=== PATIENT | female | born 1965 ===

== ENCOUNTER → 2019-02-08 | Outpatient (CLI) | payer MEDICARE, OTHER ==
[~2019-02-08] MED LIST: AMIT50 PO; BISO5 PO; CIPRO500 MG PO; CLON1 PO; CYCL10 PO; ERGO50000 PO; IBUP800; LANS30EC PO; NICO21TP TOP; OXYB5 PO; PIRO20 PO; PRAM.125 PO; PRAV20 PO; PROM12.5S; Percocet 5-3251 EACH PO; Prozac20 MG; Pyridium200 MG PO; SULTRIDS PO; Valium5 MG PO; Ventolin Soln3 ML INH
[2019-02-08 13:48] LABS: Source, Urine Clean Catch
[2019-02-08 17:35] LABS: Appearance, Urine Turbid (Clear); Bilirubin, Urine Neg (Neg); Blood, Urine 5+ (Neg); Color, Urine Yellow (P-Yellow); Glucose Qualitative, Urine Neg (Neg); Ketones, Urine Neg (Neg); Leukocyte Esterase, Urine 3+ (Neg); Nitrite, Urine Pos (Neg); Protein, Urine 3+ (Neg); Specific Gravity, Urine 1.025 (1.003-1.022); Urobilinogen, Urine NORM (Normal)
[2019-02-08 17:53] LABS: Red Blood Cells, Urine 50-100 /hpf (0-2); White Blood Cells, Urine TNTC /hpf (0-5)
[2019-02-08 17:54] LABS: Bacteria Many /hpf; Squamous Epithelial Cells Few /hpf (Few)
== END | disposition home or self-care (01) ==
LOC: LAB SHORT 13:46 → LAB 13:46
PROVIDERS: Nurse Practitioner Family
DX: R32 Unspecified urinary incontinence (principal)
CPT/HCPCS: 81001

== ENCOUNTER 2020-06-25 14:19 | Inpatient (IN) | payer MEDICARE, OTHER ==
[~2020-06-25] VITALS: Ht 157.5 cm; Wt 63.3 kg
[~2020-06-25 14:19] MED LIST changes: +Roxicodone5 MG PO
[2020-06-25 15:07] LABS: BASOPHILS ABSOLUTE AUTO 0.06 K/mm3 (0.00-0.23); BASOPHILS PERCENT AUTO 0 % (0-2); EOSINOPHILS PERCENT AUTO 0 % (0-6); Hematocrit 41.8 % (33.0-51.0); Hemoglobin 13.5 g/dL (11.5-16.0); IMMATURE GRAN ABSOLUTE AUTO 0.08 K/mm3 (0.00-0.10); IMMATURE GRAN PERCENT AUTO 0 % (0-1); LYMPHOCYTES PERCENT AUTO 6 % (21-46); MONOCYTES ABSOLUTE AUTO 1.05 K/mm3 (0.16-1.47); MONOCYTES PERCENT AUTO 6 % (4-13); Mean Corpuscular HGB 33.7 pg (26.0-34.0); Mean Corpuscular HGB Conc 32.3 g/dL (31.5-36.5); Mean Corpuscular Volume 104 fL (80-100); Mean Platelet Volume 9.6 fL (9.1-12.4); NEUTROPHILS ABSOLUTE AUTO 15.59 K/mm3 (1.96-9.15); NEUTROPHILS PERCENT AUTO 88 % (41-73); Platelet Count 556 K/mm3 (150-400); RDW Coefficient Variation 13.1 % (11.7-14.2); RDW Standard Deviation 50.5 fL (35.1-46.3); Red Blood Cell Count 4.01 M/mm3 (3.80-5.20); White Blood Cell Count 17.78 K/mm3 (4.00-11.30)
[2020-06-25 15:55] LABS: Troponin I <0.015 ng/mL (0.000-0.040)
[2020-06-25 16:37] LABS: Alanine Aminotransfer (ALT/SGP 16 U/L (12-78); Albumin, Blood 3.4 g/dL (3.4-5.0); Alk Phos 146 U/L (50-136); Anion Gap 8 mmol/L (6-16); Aspartate Aminotrans (AST/SGOT 17 U/L (12-37); Bilirubin, Total 0.3 mg/dL (0.1-1.0); Blood Urea Nitrogen 11 mg/dL (8-24); Bun/Creatinine Ratio 18.2 (12.0-20.0); CO2, Blood 18 mmol/L (21-32); Calcium, Blood 8.9 mg/dL (8.5-10.1); Chloride, Blood 112 mmol/L (98-108); Creatinine, Blood 0.61 mg/dL (0.40-1.00); Globulin, Blood 3.5 g/dL (2.2-4.0); Glomerular Filtration Rate >60 (60-); Glucose, Blood 131 mg/dL (70-99); Potassium, Blood 3.8 mmol/L (3.5-5.5); Sodium, Blood 138 mmol/L (136-145); Total Protein, Blood 6.9 g/dL (6.4-8.2)
[2020-06-25] MEDS ORDERED: AMOCLA875 PO (17:07)
[2020-06-25] MEDS ORDERED: ALBU90OI6 INH (17:09)
[2020-06-25] MEDS ORDERED: Amitriptyline150 MG PO (18:15)
[2020-06-25] MEDS ORDERED: PANTOPRAZOLE SO40 M2 PO (18:16)
[2020-06-25] MEDS ORDERED: PRAMIPEXOLE0.125 M1 PO (18:16)
[2020-06-25] MEDS ORDERED: PROZAC40 MG PO (18:16)
[2020-06-25] MEDS ORDERED: Bisoprolol Fumar5 MG PO (18:17)
[2020-06-25] MEDS ORDERED: Pravastatin Sod80 MG PO (18:17)
[2020-06-25] MEDS ORDERED: Vitamin D2000 UNIT PO (18:18)
[2020-06-25 23:49] LABS: Adenovirus Not Detected (NOT DETECT); Bordetella pertussis Not Detected (NOT DETECT); Chlamydophila pneumoniae Not Detected (NOT DETECT); Coronavirus 229E Not Detected (NOT DETECT); Coronavirus HKU1 Not Detected (NOT DETECT); Coronavirus NL63 Not Detected (NOT DETECT); Coronavirus OC43 Not Detected (NOT DETECT); Human Metapneumovirus Not Detected (NOT DETECT); Human Rhinovirus/Enterovirus Not Detected (NOT DETECT); Influenza A/2009-H1 Not Detected (NOT DETECT); Influenza A/H1 Not Detected (NOT DETECT); Influenza A/H3 Not Detected (NOT DETECT); Influenza B Not Detected (NOT DETECT); Mycoplasma pneumoniae Not Detected (NOT DETECT); Parainfluenza Virus 1 Not Detected (NOT DETECT); Parainfluenza Virus 2 Not Detected (NOT DETECT); Parainfluenza Virus 3 Not Detected (NOT DETECT); Parainfluenza Virus 4 Not Detected (NOT DETECT); Respiratory Syncytial Virus Not Detected (NOT DETECT); SARS-Cov-2 (COVID-19), BioFire Not Detected (NOT DETECT)
[2020-06-26 01:27] LABS: Source, Urine Catheter
[2020-06-26 01:29] LABS: Bilirubin, Urine Neg (Neg); Blood, Urine 2+ (Neg); Glucose Qualitative, Urine Neg (Neg); Ketones, Urine 1+ (Neg); Leukocyte Esterase, Urine 1+ (Neg); Nitrite, Urine Neg (Neg); Protein, Urine 2+ (Neg); Specific Gravity, Urine 1.015 (1.003-1.022); Urobilinogen, Urine NORM (Normal)
[2020-06-26 01:35] LABS: Appearance, Urine Hazy (Clear); Color, Urine Yellow (P-Yellow)
[2020-06-26 01:39] LABS: Bacteria Many /hpf; Red Blood Cells, Urine 0-2 /hpf (0-2); Squamous Epithelial Cells Few /hpf (Few); White Blood Cells, Urine TNTC /hpf (0-5)
[2020-06-26 05:16] LABS: BASOPHILS ABSOLUTE AUTO 0.03 K/mm3 (0.00-0.23); BASOPHILS PERCENT AUTO 0 % (0-2); EOSINOPHILS ABSOLUTE AUTO 0.02 K/mm3 (0.00-0.68); EOSINOPHILS PERCENT AUTO 0 % (0-6); Hematocrit 39.1 % (33.0-51.0); Hemoglobin 12.5 g/dL (11.5-16.0); IMMATURE GRAN PERCENT AUTO 1 % (0-1); LYMPHOCYTES ABSOLUTE AUTO 0.47 K/mm3 (0.84-5.20); LYMPHOCYTES PERCENT AUTO 2 % (21-46); MONOCYTES ABSOLUTE AUTO 0.58 K/mm3 (0.16-1.47); MONOCYTES PERCENT AUTO 3 % (4-13); Mean Corpuscular HGB 33.5 pg (26.0-34.0); Mean Corpuscular Volume 105 fL (80-100); NEUTROPHILS ABSOLUTE AUTO 19.64 K/mm3 (1.96-9.15); NEUTROPHILS PERCENT AUTO 94 % (41-73); Platelet Count 423 K/mm3 (150-400); RDW Coefficient Variation 13.3 % (11.7-14.2); RDW Standard Deviation 51.1 fL (35.1-46.3); Red Blood Cell Count 3.73 M/mm3 (3.80-5.20); White Blood Cell Count 20.84 K/mm3 (4.00-11.30)
--- NOTE | 2020-06-26 05:45 | NUR ---
SUMMARY PT ARRIVED TO FLOOR ANXIOUS AND REPORTED BEING PAINFUL. PT WAS FOUND TO HAVE A ELEVATED CIWA. PT STATES PAIN IS 10/10 IN HER CX, BACK AND FLANKS. PT TX PER EMAR. PT HAD SHORT RELIEF NOTED. DR DELGADO ORDERED INCREASE IN IN DOSE. PT RESPONDED WELL. PT ALSO MEDICATED ORDERED FOR CIWA. LATIC ACID RESULTS WERE ALSO PASSED TO PROVIDER. PROVIDER ORDERED TO CONTINUE TO MONITOR. PT LERMA PLACED AND UA SENT. PT HAS BEEN SLEEPING WELL AND BREATHING EASY. PT NOT AGITATED OR ANXIOUS THIS AM. CALL LIGHT IN REACH. WCTM
[2020-06-26 06:03] LABS: Anion Gap 13 mmol/L (6-16); Blood Urea Nitrogen 13 mg/dL (8-24); Bun/Creatinine Ratio 21.1 (12.0-20.0); CO2, Blood 16 mmol/L (21-32); Calcium, Blood 8.5 mg/dL (8.5-10.1); Chloride, Blood 113 mmol/L (98-108); Creatinine, Blood 0.62 mg/dL (0.40-1.00); Glomerular Filtration Rate >60 (60-); Glucose, Blood 140 mg/dL (70-99); Potassium, Blood 3.9 mmol/L (3.5-5.5); Sodium, Blood 142 mmol/L (136-145)
--- NOTE | 2020-06-26 17:24 | NUR ---
SHIFT SUMMARY DROWSY PT, AGITATED AND ANXIOUS UPON AWAKENING. DISORIENTED, INTITALLY, UPON AWAKENING, AT TIMES. NOTIFIED MD OF POSITIVE BLOOD CULTURES, GRAM + COCCI IN CLUSTERS, VANCO STARTED. NO COUGH NOTED, UNABLE TO COLLECT SPUTUM. LERMA DRAINING YELLOW, HAZY URINE WITH SEDIMENT. UPDATED FATHER WILLIAM PAYTON TWICE TODAY, BY PHONE.
--- NOTE | 2020-06-27 04:47 | NUR ---
VISOR INSTALLER SUMMARY PT BEGAN SHIFT W PROVIDER AT BEDSIDE EXPLAINING TX PLAN AND POSSIBLE SURGERY FOR CHOLECYSTECTOMY. PT WAS CHANGED TO A CLEAR LIQUID DIET AND ALL FOOD AND SODA WAS REMOVED FROM THE ROOM. PT C/O SEVERE ABD PAIN AND WAS MEDICATED W 50 MCG OF FENTANYL WHICH SHE REPORTD BROUGHT HER MUCH RELIEF. PT SLEPT MOST OF THE NIGHT AND IS CURRENTLY RESTING W CALL LIGHT IN REACH.
[2020-06-27 05:24] LABS: BASOPHILS ABSOLUTE AUTO 0.03 K/mm3 (0.00-0.23); BASOPHILS PERCENT AUTO 0 % (0-2); EOSINOPHILS ABSOLUTE AUTO 0.01 K/mm3 (0.00-0.68); EOSINOPHILS PERCENT AUTO 0 % (0-6); Hematocrit 40.5 % (33.0-51.0); Hemoglobin 13.1 g/dL (11.5-16.0); IMMATURE GRAN ABSOLUTE AUTO 0.13 K/mm3 (0.00-0.10); IMMATURE GRAN PERCENT AUTO 1 % (0-1); LYMPHOCYTES ABSOLUTE AUTO 1.01 K/mm3 (0.84-5.20); LYMPHOCYTES PERCENT AUTO 5 % (21-46); MONOCYTES ABSOLUTE AUTO 0.93 K/mm3 (0.16-1.47); MONOCYTES PERCENT AUTO 5 % (4-13); Mean Corpuscular HGB 33.9 pg (26.0-34.0); Mean Corpuscular HGB Conc 32.3 g/dL (31.5-36.5); Mean Corpuscular Volume 105 fL (80-100); Mean Platelet Volume 9.6 fL (9.1-12.4); NEUTROPHILS ABSOLUTE AUTO 18.76 K/mm3 (1.96-9.15); NEUTROPHILS PERCENT AUTO 90 % (41-73); Platelet Count 438 K/mm3 (150-400); RDW Coefficient Variation 13.5 % (11.7-14.2); RDW Standard Deviation 51.9 fL (35.1-46.3); Red Blood Cell Count 3.86 M/mm3 (3.80-5.20); White Blood Cell Count 20.87 K/mm3 (4.00-11.30)
[2020-06-27 06:08] LABS: Alanine Aminotransfer (ALT/SGP 13 U/L (12-78); Albumin, Blood 2.7 g/dL (3.4-5.0); Albumin/Globulin Ratio 0.7 (0.8-1.8); Alk Phos 129 U/L (50-136); Anion Gap 11 mmol/L (6-16); Aspartate Aminotrans (AST/SGOT 27 U/L (12-37); Bilirubin, Total 0.5 mg/dL (0.1-1.0); Blood Urea Nitrogen 14 mg/dL (8-24); CO2, Blood 16 mmol/L (21-32); Calcium, Blood 8.5 mg/dL (8.5-10.1); Chloride, Blood 112 mmol/L (98-108); Creatinine, Blood 0.67 mg/dL (0.40-1.00); Globulin, Blood 3.8 g/dL (2.2-4.0); Glomerular Filtration Rate >60 (60-); Glucose, Blood 106 mg/dL (70-99); Potassium, Blood 3.9 mmol/L (3.5-5.5); Sodium, Blood 139 mmol/L (136-145); Total Protein, Blood 6.5 g/dL (6.4-8.2)
--- NOTE | 2020-06-27 17:20 | NUR ---
SHIFT SUMMARY PATIENT MOANS AND IS RESTLESS, COMPLAINING OF PAIN. IMPULSIVE. DANGLES AND TURNS SELF FREQUENTLY. RAINBOW TROUT FARM MANAGER INITIATED. PATIENT REMINDED UPON AWAKENING WITH ANXIETY AND PAIN TO PUSH BUTTON, NEEDS REINFORCEMENT. CAREGIVER AND FATHER UPDATED ON PATIENT STATUS. OFFERED PO FLUIDS EACH TIME PT AWAKENS. CONSISTENTLY DROWSY BUT ORIENTED X4.
--- NOTE | 2020-06-27 20:19 | NUR ---
PATIENT IS UNABLE TO FOLLOW COMMANDS. SHE IS CONSTANTLY SWINGING LEGS OVER THE SIDE OF BED AND ROCKING BACK AND FORTH. UNABLE TO VERBALIZE NEEDS, CURRENTLTY WITH BOBBIN WINDER TENDER FENTANYL AND REFUSING TO WEAR 02. CIWA SCALE RESTARTED. REQUESTED PATIENT BE MOVED TO SPECIAL CARE UNIT, AWAITING CLEAN ROOM
--- NOTE | 2020-06-27 22:14 | NUR ---
Patient transferred to room 345. Report given to Johanna Bridges RN.
--- NOTE | 2020-06-28 04:27 | NUR ---
SHIFT SUMMARY: PT IS RESPONSIVE WITH SLURRED SPEECH, SOME ORIENTATION WITH SOME CONFUSION. PT IS THRASHING AROUND OFTEN, APPEARS TO BE ALCOHOL WITHDRAWAL, MEDICATING WITH IV ATIVAN PER EMAR, PT MUCH MORE RESTFUL AFTER MEDICATION. MORNING VITAL SIGNS SHOW O2 SATS @ 80%, PUT HER ON 5 L VIA NC, SATS RETURNED TO LOW 90'S. LERMA PATENT AND DRAINING YELLOW URINE. PT SLEPT INTERMITTENTLY THROUGHOUT THE NIGHT. BED IN LOW POSITION, CALL LIGHT WITHIN REACH. WILL REPORT TO DAY NURSE.
[2020-06-28 11:15] LABS: BASOPHILS ABSOLUTE AUTO 0.04 K/mm3 (0.00-0.23); BASOPHILS PERCENT AUTO 0 % (0-2); EOSINOPHILS ABSOLUTE AUTO 0.03 K/mm3 (0.00-0.68); EOSINOPHILS PERCENT AUTO 0 % (0-6); Hematocrit 34.1 % (33.0-51.0); Hemoglobin 11.4 g/dL (11.5-16.0); IMMATURE GRAN ABSOLUTE AUTO 0.06 K/mm3 (0.00-0.10); IMMATURE GRAN PERCENT AUTO 0 % (0-1); LYMPHOCYTES ABSOLUTE AUTO 0.79 K/mm3 (0.84-5.20); LYMPHOCYTES PERCENT AUTO 5 % (21-46); MONOCYTES ABSOLUTE AUTO 0.84 K/mm3 (0.16-1.47); MONOCYTES PERCENT AUTO 5 % (4-13); Mean Corpuscular HGB 34.3 pg (26.0-34.0); Mean Corpuscular HGB Conc 33.4 g/dL (31.5-36.5); Mean Corpuscular Volume 103 fL (80-100); Mean Platelet Volume 9.8 fL (9.1-12.4); NEUTROPHILS ABSOLUTE AUTO 14.77 K/mm3 (1.96-9.15); NEUTROPHILS PERCENT AUTO 89 % (41-73); Platelet Count 307 K/mm3 (150-400); RDW Coefficient Variation 13.4 % (11.7-14.2); RDW Standard Deviation 50.6 fL (35.1-46.3); Red Blood Cell Count 3.32 M/mm3 (3.80-5.20); White Blood Cell Count 16.53 K/mm3 (4.00-11.30)
[2020-06-28 12:02] LABS: Alanine Aminotransfer (ALT/SGP 24 U/L (12-78); Albumin, Blood 2.1 g/dL (3.4-5.0); Albumin/Globulin Ratio 0.6 (0.8-1.8); Alk Phos 121 U/L (50-136); Anion Gap 9 mmol/L (6-16); Aspartate Aminotrans (AST/SGOT 60 U/L (12-37); Bilirubin, Total 0.9 mg/dL (0.1-1.0); Blood Urea Nitrogen 15 mg/dL (8-24); Bun/Creatinine Ratio 22.9 (12.0-20.0); CO2, Blood 20 mmol/L (21-32); Calcium, Blood 8.4 mg/dL (8.5-10.1); Chloride, Blood 110 mmol/L (98-108); Creatinine, Blood 0.65 mg/dL (0.40-1.00); Globulin, Blood 3.7 g/dL (2.2-4.0); Glomerular Filtration Rate >60 (60-); Glucose, Blood 72 mg/dL (70-99); Magnesium, Blood 1.7 mg/dL (1.6-2.4); Phosphorus, Blood 1.8 mg/dL (2.5-4.9); Potassium, Blood 3.1 mmol/L (3.5-5.5); Sodium, Blood 139 mmol/L (136-145); Total Protein, Blood 5.8 g/dL (6.4-8.2)
[2020-06-28 15:32] LABS: Vancomycin, Trough 16.8 ug/mL (5.0-10.0)
--- NOTE | 2020-06-28 16:24 | NUR ---
SHIFT SUMMARY PT SLEEPING AT START OF SHIFT, RESTING QUIETLY. PT SLEEPY EVEN TO PRESENT. PT WOULD OPEN EYES BREIFLY AND THEN GO BACK TO SLEEP. PT BECAME VERY RESTLESS THIS AFTERNOON, OPENING EYES MORE FREQUENTLY AND C/O ABD PAIN. FENTANYL 25 MCG GIVEN; PT RESTING QUIETLY AT THIS TIME. PT HAVING SPASTIC MOTIONS WITH ALL EXTREMITIES D/T HX OF SPINAL ABSCESS. SPASTIC MOTIONS INCREASED WHEN PT WAS IN PAIN AND COULDN'T GET COMFORTABLE. PT NOT AWAKE ENOUGH TO TAKE PO INTAKE TODAY SO FAR. PT ABLE TO TAKE A DRINK OF WATER FROM CUP RECENTLY, BUT DIFFICULT D/T SPASTIC MOTIONS IN ARMS AND NOT BEING AWAKE ENOUGH TO FOLLOW DIRECTIONS. DR TAM IN TO SEE PT THIS AM AND DR SENA IN THIS AFTERNOON. NO NEW ORDERS RECEIVED. BED ALARM ON FOR SAFTEY. IVF'S INFUSING. VSS; SEE CHART.
--- NOTE | 2020-06-28 23:30 | NUR ---
CIWA 13 & PAIN PT HAS BEEN SOMNOLENT ALL OF THE SHIFT PER DAYSHIFT RN REPORT AND MD NOTES. PT AWAKES TO VERBAL STIMULI AND QUICKLY FALLS BACK TO SLEEP. MEDICATIONS WERE HELD HS DUE TO ASPIRATION RISK. AT 2330 PT DEMEANOR CHANGED. PT WOKE UP AND BEGAN COMPLAINING OF PAIN, SHE HAD BECOME RESTLESS. SHE WAS THRASHING AROUND IN BED AND STATED HER PAIN WAS A 10. CIWA'S PER ORDERS. CIWA SCORE OF 8 AND THEN 13 WITH MY SECOND ASSESSMENT. PT HIGHLY ANXIOUS, FIGETING, KICKING HER LEGS OFF THE SIDE OF THE BED, AND REACHING FOR THE SIDE RAILS, AND TRYING TO GET UP. MEDICATED WITH 25 MCG OF FENTANYL FOR PAIN AND 1 MG ATIVAN PER CIWA PROTOCOL ORDERS.
[2020-06-29 00:45] LABS: PCO2 Arterial 31.5 mmHg (35-45); pH Blood Arterial 7.33 (7.35-7.45)
[2020-06-29 00:46] LABS: PO2 Arterial 41.8 mmHg (80-100)
--- NOTE | 2020-06-29 01:00 | NUR ---
RAPID RESPONSE AROUND 0020 I HAD PRIVATE WEALTH ADVISOR PERFORM SPOT CHECK O2 SAT SHE HAD REPORTED SOB. SHE INITALLY REQUIRED 4L O2, AND HAD NEEDED TO BE INCREASED TO 5L DURING THE DAY. PT RESPIRATIONS LABORED, AND POSITIONAL. CALL PLACED TO RT, I NOTIFIED THEM OF PT INCREASED O2 NEEDS. I PLACED PT ON 6L VIA HIGH FLOW NC, AND SATS REMAINED IN THE MID 80'S. CALL PLACED TO RT AGAIN AND NOTIFIED THEM THAT PT HAD NO CHANGE IN HER O2 SATS AFTER INTERVENTION. THEY STATED THAT THEY WOULD COME AND ASSESS PT. THEY ASSESSED PT AND INCREASED PT TO 15L VIA HIGH FLOW AND STILL HER SATS HAD NOT IMPROVED. RT REPORTS CRACKLES IN THE BASES. HEART SOUNDS ARE TACY AND IRREGULAR WITH AUSCULATION. POWDERED SUGAR PULVERIZER OPERATOR IVANA JAVIER IN ROOM TO ASSESS PT DUE TO MY EXPRESSED CONCERN. CALL PLACED TO HOSPITALIST WITH NO INITIAL ANSWER. RAPID RESPONSE WAS THEN CALLED ON PT. WILDLIFE REHABILITATOR TEAM REPSONED TO ROOM. SBAR REPORTED TO WIDE LOAD ESCORT. VITALS OBTAINED. HR ELEVATED, HOWEVER BP STABLE. EKG OBTAINED WITH NO ACUTE CHANGES FROM INITAL. ABG PERFORMED BY RT. CRITICAL ABG RESULTS. PT HAS BEEN RECEIVING CONTINIOUS FLUIDS, WITH NOT MUCH OUTP UT VIA LERMA. CALL PLACED TO DR. KEYS WITH ANSWER AT 0046. NOTIFIED OF PT INCREASED O2 NEEDS, SOMNOLENCE AND CRACKLES IN HER LUNGS. RECEIVED ORDER FOR 40MG IV LASIKS AND TRANSFER TO PCU. REPORT CALLED TO SHAPER MACHINE HAND AT 0055. PT ON BIPAP AT THIS. PT ROOM GATHERED WITH BELONGINGS IN PLACE. PT TRANSFERRED TO PCU WITHOUT EVENT.
[2020-06-29 01:45] LABS: Hematocrit 32.8 % (33.0-51.0); Mean Corpuscular HGB 34.4 pg (26.0-34.0); Mean Corpuscular HGB Conc 33.5 g/dL (31.5-36.5); Mean Corpuscular Volume 103 fL (80-100); Mean Platelet Volume 9.7 fL (9.1-12.4); Platelet Count 359 K/mm3 (150-400); RDW Coefficient Variation 13.2 % (11.7-14.2); RDW Standard Deviation 50.3 fL (35.1-46.3); White Blood Cell Count 16.52 K/mm3 (4.00-11.30)
[2020-06-29 02:03] LABS: Alanine Aminotransfer (ALT/SGP 24 U/L (12-78); Albumin/Globulin Ratio 0.5 (0.8-1.8); Alk Phos 118 U/L (50-136); Anion Gap 13 mmol/L (6-16); Aspartate Aminotrans (AST/SGOT 47 U/L (12-37); Bilirubin, Total 0.9 mg/dL (0.1-1.0); Blood Urea Nitrogen 13 mg/dL (8-24); Bun/Creatinine Ratio 17.9 (12.0-20.0); CO2, Blood 18 mmol/L (21-32); Calcium, Blood 8.4 mg/dL (8.5-10.1); Chloride, Blood 110 mmol/L (98-108); Creatinine, Blood 0.73 mg/dL (0.40-1.00); Glomerular Filtration Rate >60 (60-); Glucose, Blood 76 mg/dL (70-99); Magnesium, Blood 1.7 mg/dL (1.6-2.4); Potassium, Blood 2.8 mmol/L (3.5-5.5); Sodium, Blood 141 mmol/L (136-145)
[2020-06-29 02:11] LABS: BASOPHILS PERCENT MAN 0 % (0-2); EOSINOPHILS PERCENT MAN 0 % (0-6); LYMPHOCYTES ABSOLUTE MAN 0.66 K/mm3 (0.84-5.20); LYMPHOCYTES PERCENT MAN 4 % (21-46); MONOCYTES ABSOLUTE MAN 0.66 K/mm3 (0.16-1.47); MONOCYTES PERCENT MAN 4 % (4-13); NEUTROPHILS ABSOLUTE MAN 15.19 K/mm3 (1.96-9.15); SEG NEUTROPHILS PERCENT MAN 92 % (41-73); TOTAL CELLS COUNTED 100
--- NOTE | 2020-06-29 02:18 | NUR ---
CALL PLACED TO NEXT OF KIN LISTED IN PT CHART WILLIAM PAYTON TO NOTIFY OF TRANSFER STATUS. THERE WAS NO ANSWER. WILL NOTIFY DEHYDRATION PLANT OPERATOR SO THAT THEY CAN FOLLOW UP IN CONTACTING FAMILY TO NOTIFY.
--- NOTE | 2020-06-29 06:37 | NUR ---
TRANSFER AND SHIFT SUMMARY PT TO UNIT FROM MED FLOOR POST PSYCHIATRIC NURSING AIDE. OBTUNDED. ON BIPAP WITH 10L BLEED IN. SBP 100. PT SETTLED IN ROOM. UPON ATTEMPTING TO CHANGE PT BRIEF, PT BECOMES AGITATED, SWINGING AT STAFF AND RIPPING BIPAP OFF. WITHOUT BIPAP, PT DESATS QUICKLY TO 75%. WITH CALM REASSURANCE, BIPAP PLACED BACK ON PT. PT EVENTUALLY ALLOWED ATTENDS CHANGE. POST ADMIT, VSS. CIWA <8. PT NOW ON OXIMIZER, 10L, SPO2 >92%. LERMA REMAINS PATENT AND DRAINING. PT RECEIVING TOTAL OF 40MEQ IV KCL AND VANCO. SEIZURE PADS IN PLACE. FOREST LCONTINUE TO MONITOR UNTIL SHIFT CHANGE.
--- NOTE | 2020-06-29 07:42 | NUR ---
ASSUMED CARE: PT RESTING IN BED, 10L OXYMIZER IN PLACE AT THIS TIME. BED ALARM ON. NO ACUTE NEEDS OR CONCERNS AT THIS TIME.
--- NOTE | 2020-06-29 10:48 | NUR ---
PT STILL VERY LETHARGIC WITH 8L OXYMIZER. CPAP MASK IN PLACE AT THIS TIME. PT IMMEDIATELY WOKE UP AND TRIED TO PULL MASK OFF AND ASKED WHEN SHE COULD GO HOME. REORIENTED AND PT IS CURRENTLY RESTING WITH MASK IN PLACE AT THIS TIME.
--- NOTE | 2020-06-29 12:24 | NUR ---
PT RETURNED FROM CT, AWAKE AND ASKING FOR DRINK OF WATER AND TO SPEAK TO HER FATHER. RN SPOKE WITH HER FATHER AND GAVE HIM AN UPDATE. ORDER EDITOR ASSISTING WITH PHONE SO PT CAN SPEAK TO HIM HERSELF
--- NOTE | 2020-06-29 18:05 | NUR ---
SHIFT SUMMARY: PT CURRENTLY ON 8L OXYMIZER SATTING LOW 90S. BIPAP OCCASIONALLY WITH SETTINGS 17/. PT MORE AWAKE BUT STILL CONFUSED. CT SCAN NEGATIVE PER DR TAM. IV ABX FOR ASPIRATION RISK. BED ALARM ON. CONTINUES TO ASK FOR SLEEPING MED BUT RN REMINDS HER THAT THOSE CANNOT BE GIVEN DURING THE DAY. PAIN MEDS GIVEN X1. NO FURTHER NEEDS OR CONCERNS AT THIS TIME.
--- NOTE | 2020-06-29 21:20 | NUR ---
CARE ASSUMED REPORT RECEIVED, CARE ASSUMED AT 1900 FROM DAINA RAVI. PT ANXIOUS, THRASHING AROUND IN BED, WITH OXYGEN OFF AT CHANGE OF SHIFT. PT REPORTS BEING PAINFUL EVERYWHERE. ASSISTED TO PLACE OXYMIZER BACK ON, AND RECEIVED REPORT. FENTANYL GIVEN DURING ASSESSMENT, BIPAP PLACED ON PT. PT RESTED QUIETLY FOR APPROX 30 MINUTES. THEN PT BECAME ANXIOUS AGAIN, THRASHING AROUND IN BED, TAKING OFF BIPAP AND CONTINUES PULSE OX REPEATEDLY. [facility] ASSESSMENT ALSO REVEALED HEADACHE, DISORIENTATION TO DAY, AND MILD AGITATION PT CURSING INTERMITTENTLY TO SELF. ATIVAN GIVEN PER CILA PROTOCOL. PT GIVEN BREAK FROM BIPAP AND PLACED ON OXYMIZER. VITALS STABLE WHEN PT CONSISTENLY USING OXYGEN, HOWEVER PT DESATURATES TO LOW 80'S, MID 70'S QUICKLY WHEN OXYGEN OR BIPAP IS OFF. LERMA IN PLACE FOR STRICT I/O. PT ORIENTED TO SELF, LOCATION AND YEAR, AND EXPRESSING NEEDS CLEAR.Y SEE FULL ASSESSMENT. BED ALARM IN PLACE, SIDE RAILS UP FOR PATIENT SAFETY.
--- NOTE | 2020-06-30 00:16 | NUR ---
PAIN MANAGEMENT PT MEDICATED FOR PAIN AND ETOH W/D PER EMAR. SEE CIWA ASSESSMENTS. FENTANYL AND ATIVAN HAVE BEEN EFFECTIVE FOR MANAGEMENT OF STOMACH PAIN AND ETOH WITHDRAWAL UNTIL WITHIN THE LAST 30 MINUTES. PT ONLY HAVING APPROX 20 MIN PERIODS OF REST AND THEN WAKES UP WRITHING IN BED, YELLING ABOUT PAIN IN HER STOMACH, CURSING, HOLDING STOMACH. PULLS BIPAP OFF IMMEDIATELY EVERY TIME SHE WAKES UP. FENTANYL GIVEN AND PT CALM AT THE MOMENT, BUT WAKES UP AND WRITHES WITH ANY STIMULATION. ABDOMEN CONTINUES TO BE SOFT, INCREASED TENDERNESS WITH PALPATION. BOWEL SOUNDS ACTIVE IN ALL FOUR QUADRANTS. SPOKE WITH DR. KEYS REGARDING THESE FINDINGS. NEW ORDER TO DISCONTINUE FENTANYL AND START DILAUDID.
--- NOTE | 2020-06-30 00:21 | NUR ---
DILAUDID ORDER SPOKE WITH YAMILETH, PHARMACIST REGARDING POTENTIAL CROSS ALLERGY ALERT WHEN PLACING ORDER FOR DILAUDID. YAMILETH IN PHARMACY STATES TO MONITOR FOR ALLERGY, AND THAT FENTANYL WOULD BE A SAFER OPTION FOR PAIN MANAGEMENT. SPOKE WITH DR. KEYS. PER DR. KEYS, CONTINUE WITH DILAUDID ORDER AND MONITOR FOR REACTION.
[2020-06-30 03:54] LABS: BASOPHILS ABSOLUTE AUTO 0.02 K/mm3 (0.00-0.23); BASOPHILS PERCENT AUTO 0 % (0-2); EOSINOPHILS ABSOLUTE AUTO 0.04 K/mm3 (0.00-0.68); EOSINOPHILS PERCENT AUTO 0 % (0-6); Hematocrit 27.1 % (33.0-51.0); Hemoglobin 9.1 g/dL (11.5-16.0); IMMATURE GRAN ABSOLUTE AUTO 0.15 K/mm3 (0.00-0.10); IMMATURE GRAN PERCENT AUTO 1 % (0-1); LYMPHOCYTES ABSOLUTE AUTO 0.44 K/mm3 (0.84-5.20); LYMPHOCYTES PERCENT AUTO 4 % (21-46); MONOCYTES ABSOLUTE AUTO 0.89 K/mm3 (0.16-1.47); MONOCYTES PERCENT AUTO 7 % (4-13); Mean Corpuscular HGB 34.2 pg (26.0-34.0); Mean Corpuscular HGB Conc 33.6 g/dL (31.5-36.5); Mean Corpuscular Volume 102 fL (80-100); Mean Platelet Volume 9.5 fL (9.1-12.4); NEUTROPHILS ABSOLUTE AUTO 10.61 K/mm3 (1.96-9.15); NEUTROPHILS PERCENT AUTO 87 % (41-73); NRBC ABSOLUTE 0.04 K/mm3 (0.00-0.02); NRBC Auto 0.3 /100 WBC (0.0-0.2); Platelet Count 302 K/mm3 (150-400); RDW Coefficient Variation 13.6 % (11.7-14.2); RDW Standard Deviation 50.9 fL (35.1-46.3); Red Blood Cell Count 2.66 M/mm3 (3.80-5.20); White Blood Cell Count 12.15 K/mm3 (4.00-11.30)
[2020-06-30 04:14] LABS: Albumin, Blood 1.8 g/dL (3.4-5.0); Albumin/Globulin Ratio 0.5 (0.8-1.8); Bilirubin, Total 0.6 mg/dL (0.1-1.0); Bun/Creatinine Ratio 14.3 (12.0-20.0); Calcium, Blood 8.2 mg/dL (8.5-10.1); Creatinine, Blood 1.19 mg/dL (0.40-1.00); Globulin, Blood 3.8 g/dL (2.2-4.0); Magnesium, Blood 1.8 mg/dL (1.6-2.4); Potassium, Blood 4.1 mmol/L (3.5-5.5); Total Protein, Blood 5.6 g/dL (6.4-8.2)
--- NOTE | 2020-06-30 06:17 | NUR ---
SUMMARY PT HAS BEEN EXTREMELY LABILE ALL NIGHT REGARDING CIWA ASSESSMENT AND PAIN MANAGEMENT. PT IS EITHER COMPLETELY ASLEEP, TOLERATING BIPAP, OR IS WIDE AWAKE, THRASHING IN BED, INCONSOLABLE, RIPPING OFF MEDICAL EQUIPMENT, AND UNWILLING TO PARTICIPATE IN NEURO REASSESSMENT QUESTIONS. PT OCCASIONALLY WILL YELL, "[facility]!" AND "HOSPITAL" WHEN ASKED NAME AND LOCATION, BUT OTHERWISE ONLY CURSES AT STAFF. SEE EMAR FOR MEDICATION FOR MANAGEMENT OF POSSIBLE ETOH WITHDRAWAL AND PAIN. HR CONSISTENTLY ELEVATED IN 110'S-120'S, SINUS RHYTHM. 02 SAT STABLE WHEN PT KEEPS BIPAP OR OXYMIZER ON. OTHERWISE, VITALS STABLE. PT HAS BEEN ON BIPAP THE ENTIRE NIGHT, OTHER THAN WHEN SHE WAKES UP AND PULLS ALL OF HER EQUIPMENT OFF, IN WHICH CASE SHE HAS BEEN PLACED ON THE OXYMIZER. MODERATE URINE OUTPUT. NO BM THIS SHIFT. SEE REPEAT ASSESSMENTS.
--- NOTE | 2020-06-30 14:15 | NUR ---
Patient is sitting up in bed with eyes shut and pulling at her leg then pulling at her oxygen tubes then trying to push herself up in bed. Patient tells me that she is hurting. I ask patient where she hurts and she says, "Everywhere." Patient does not communicate much after this except for an occational swear word. Patient's RN Jaci gives patient pain meds, changes her oxygen cannula over to a mask and repositions patient. She begins to relax within minutes. I ask patient if I could pray for her and she nods her head favorably. I gladly provide prayer. Patient then falls asleep. I will continue to remain available to patient and family.
--- NOTE | 2020-06-30 18:01 | NUR ---
SHIFT SUMMARY PT LETHARGIC AND NONVERBAL MOST OF SHIFT. PT AWAKENS WHEN SHE IS IN PAIN AND THRASHES IN THE BED, PULLING AT LINES AND 02 TUBING. WHEN PT IS MEDICATED FOR PAIN, SHE RELAXES AND QUITS PULLING AT THINGS AND YELLING OUT. VS STABLE. HR SINUS TACH 110'S. BP STABLE. O2 SATS HAVE REMAINED ABOVE 90% ON OXYMIZER WITH 7L OR BIPAP WITH 7L BLEED IN. PT REPOSITIONED Q2H. LERMA PATENT AND DRAINING CLEAR YELLOW URINE. PT HAS HAD MINIMAL INTAKE. BANANA BAG INFUSING PER ORDERS. WILL CONTINUE TO MONITOR CLOSELY.
[2020-07-01 04:54] LABS: BASOPHILS ABSOLUTE AUTO 0.04 K/mm3 (0.00-0.23); BASOPHILS PERCENT AUTO 0 % (0-2); EOSINOPHILS ABSOLUTE AUTO 0.21 K/mm3 (0.00-0.68); EOSINOPHILS PERCENT AUTO 2 % (0-6); Hematocrit 26.7 % (33.0-51.0); Hemoglobin 8.9 g/dL (11.5-16.0); IMMATURE GRAN ABSOLUTE AUTO 0.43 K/mm3 (0.00-0.10); IMMATURE GRAN PERCENT AUTO 4 % (0-1); LYMPHOCYTES ABSOLUTE AUTO 0.55 K/mm3 (0.84-5.20); LYMPHOCYTES PERCENT AUTO 5 % (21-46); MONOCYTES ABSOLUTE AUTO 0.94 K/mm3 (0.16-1.47); MONOCYTES PERCENT AUTO 8 % (4-13); Mean Corpuscular HGB 33.6 pg (26.0-34.0); Mean Corpuscular HGB Conc 33.3 g/dL (31.5-36.5); Mean Corpuscular Volume 101 fL (80-100); Mean Platelet Volume 9.8 fL (9.1-12.4); NEUTROPHILS ABSOLUTE AUTO 9.96 K/mm3 (1.96-9.15); NEUTROPHILS PERCENT AUTO 82 % (41-73); NRBC ABSOLUTE 0.06 K/mm3 (0.00-0.02); NRBC Auto 0.5 /100 WBC (0.0-0.2); Platelet Count 335 K/mm3 (150-400); RDW Coefficient Variation 14.1 % (11.7-14.2); RDW Standard Deviation 51.8 fL (35.1-46.3); Red Blood Cell Count 2.65 M/mm3 (3.80-5.20); White Blood Cell Count 12.13 K/mm3 (4.00-11.30)
--- NOTE | 2020-07-01 05:09 | NUR ---
SHIFT SUMMARY: PATIENTS FATHER CALLED AND EXPRESSED HIS CONCERN ABOUT THE PATIENTS ABILITY TO TAKE CARE OF HERSELF OUTPATIENT. HE WOULD LIKE TO SPEAK TO HER DOCTOR. S/S CONSULT ORDERD PER PROTOCOL. PATIENT LETHARGIC MOST OF THE NIGHT, AWOKE 3 X FOR PAIN MEDICATION AND WATER. PATIENT ON OXYMIZER MAJORITY OF SHIFT AT 7L WITH SATURATION AT 93%. NO OTHER ISSUES NOTED THIS SHIFT, VSS, CALL LIGHT WITHIN REACH, BED LOW AND LOCKED WITH EXIT ALARM ON.
[2020-07-01 05:16] LABS: Albumin, Blood 1.7 g/dL (3.4-5.0); Albumin/Globulin Ratio 0.4 (0.8-1.8); Bilirubin, Total 0.7 mg/dL (0.1-1.0); Bun/Creatinine Ratio 9.7 (12.0-20.0); Calcium, Blood 8.3 mg/dL (8.5-10.1); Creatinine, Blood 1.34 mg/dL (0.40-1.00); Potassium, Blood 3.4 mmol/L (3.5-5.5); Total Protein, Blood 5.7 g/dL (6.4-8.2)
--- NOTE | 2020-07-01 10:28 | NUR ---
UPDATE PT PROVIDED BED BATH. AFTER BED BATH COMPLETE, PT BECOMES MUCH MORE ALERT AND ORIENTED. PT SPEAKING IN FULL SENTENCES AND ANSWERING QUESTIONS APPROPRIATELY. PT ABLE TO TOLERATE PO INTAKE AT THIS TIME. PT REPORTS MILD PAIN TO ABD, BUT STATES IT IS TOLERABLE AT THIS TIME. PT HAD LARGE LOOSE BM THIS AM. LERMA PATENT AND DRAINING. O2 SATS REMAIN ABOVE 90% ON 3.5L OXYMIZER. HR SINUS TACH. BP STABLE. WILL CONTINUE TO MONITOR CLOSELY.
--- NOTE | 2020-07-01 15:06 | NUR ---
REPORT RECEIVED FROM EMILEE SAFE DEPOSIT CLERK, AT [id number]. PATIENT TO TRANSFER TO ROOM 348.
--- NOTE | 2020-07-01 15:32 | NUR ---
REPORT GIVEN TO ROBERT LAMA. PT TAKEN UP BY BED.
--- NOTE | 2020-07-01 16:17 | NUR ---
PATIENT HAS BEEN SLEEPING SINCE SHE ARRIVED TO ROOM 348. IV ABX RUNNING WITHOUT INDICATION OF PROBLEMS. VITALS HAVE BEEN STABLE. WILL GET TO KNOW PATIENT MORE ONCE SHE WAKES UP.
--- NOTE | 2020-07-02 04:52 | NUR ---
54 YEAR OLD pt WAS pcu TRANSFER & SHE SCORED 3 TO 5 ON VIEWS. ON HIGH FLOW OXIMIZER OR BIPAP WITH BLEED IN OXYGEN TO KEEP SATS GREATER THAN 90%. rEMOVES OXYGEN FREQUENTLY WHILE ON OXIMIZER. PATIENT TRANSPORTATION DRIVER MIMI CONTACTED ABOUT VIEWS SCORES, SHE RX NARCAN PRN& ENCOURAGED BIPAP USE. BIOX TO ALERT STAFF IF PTS DESATTING. REPORTEDLY 82% ON ROOM AIR. PT ON ZOSYN & CLINDAMYCIN TO TX PNEUMONIA. PLACED IN CONTACT ISOLATION DUE TO HX OF MRSA ACTIVE INFECTION. ciwa 10 & 12 MEDICATED WITH 1 MG iv ATIVAN WITH HELPFUL EFFECT. KPAD TO ABD FOR ABD PAIN WITH HELPFUL EFFECT.
[2020-07-02 05:11] LABS: BASOPHILS ABSOLUTE AUTO 0.04 K/mm3 (0.00-0.23); BASOPHILS PERCENT AUTO 0 % (0-2); EOSINOPHILS ABSOLUTE AUTO 0.05 K/mm3 (0.00-0.68); EOSINOPHILS PERCENT AUTO 0 % (0-6); Hemoglobin 8.8 g/dL (11.5-16.0); IMMATURE GRAN ABSOLUTE AUTO 0.67 K/mm3 (0.00-0.10); IMMATURE GRAN PERCENT AUTO 5 % (0-1); LYMPHOCYTES ABSOLUTE AUTO 0.75 K/mm3 (0.84-5.20); LYMPHOCYTES PERCENT AUTO 5 % (21-46); MONOCYTES ABSOLUTE AUTO 0.94 K/mm3 (0.16-1.47); MONOCYTES PERCENT AUTO 7 % (4-13); Mean Corpuscular HGB 33.7 pg (26.0-34.0); Mean Corpuscular HGB Conc 33.8 g/dL (31.5-36.5); Mean Corpuscular Volume 100 fL (80-100); Mean Platelet Volume 9.7 fL (9.1-12.4); NEUTROPHILS ABSOLUTE AUTO 12.04 K/mm3 (1.96-9.15); NEUTROPHILS PERCENT AUTO 83 % (41-73); NRBC ABSOLUTE 0.02 K/mm3 (0.00-0.02); NRBC Auto 0.1 /100 WBC (0.0-0.2); Platelet Count 312 K/mm3 (150-400); RDW Coefficient Variation 14.1 % (11.7-14.2); RDW Standard Deviation 50.7 fL (35.1-46.3); Red Blood Cell Count 2.61 M/mm3 (3.80-5.20); White Blood Cell Count 14.49 K/mm3 (4.00-11.30)
--- NOTE | 2020-07-02 05:23 | NUR ---
pt TOLERATED BIPAP FOR OVER 6 HOURS, AWAKE THIS AM REQUESTING ICE WATER. BIPAP REMOVED BACK TO OXUMIZER WITH BIOXX TO KEEP SATS GREATER THAN 90%
[2020-07-02 05:40] LABS: Albumin, Blood 1.7 g/dL (3.4-5.0); Albumin/Globulin Ratio 0.4 (0.8-1.8); Bilirubin, Total 0.5 mg/dL (0.1-1.0); Bun/Creatinine Ratio 7.2 (12.0-20.0); Calcium, Blood 8.2 mg/dL (8.5-10.1); Creatinine, Blood 1.25 mg/dL (0.40-1.00); Potassium, Blood 3.1 mmol/L (3.5-5.5); Total Protein, Blood 5.7 g/dL (6.4-8.2)
--- NOTE | 2020-07-02 18:09 | NUR ---
SHIFT SUMMARY NO ACUTE CHANGES T/O SHIFT. A&O TO SELF AND YEAR. PT ON 3 L/MIN OF OXYGEN VIA NC, ON CONT BIOX. PT STATED SEVERE PAIN IN HER ABD, POSSIBLY R/T PANCREATITIS. DIALUDID GIVEN PER EMAR FOR PAIN. DISCUSSED WITH PROVIDER REASON FOR LERMA AND HE STATED PT HAS CHRONIC URINARY RETENTION. ALSO DISCUSSED WITH ESPINOZA THE PTS LOW POTASSIUM LEVELS, THE NEED FOR PT/OT ORDERS, PROBIOTICS, AND A POSSIBLE STOOL SAMPLE. ESPINOZA PROVIDED VERBAL ORDERS FOR POTASSIUM, PROBIOTICS, AND PT/OT. STOOL SAMPLE WAS ALSO COLLECTED PER PROVIDER ORDERS. ALSO DISCUSSED THE LOVENOX BID AND DROPPING HGB LEVELS. ESPINOZA STATED TO CONT LOVENOX BID. TALKED WITH FATHER AND MOTHER ON THE PHONE TODAY. FATHER ASKED FOR UPDATE FROM PROVIDER. PROVIDER NOTIFIED AND NUMBER WAS PROVIDED TO HIM.
[2020-07-03 05:36] LABS: BASOPHILS ABSOLUTE AUTO 0.06 K/mm3 (0.00-0.23); BASOPHILS PERCENT AUTO 0 % (0-2); EOSINOPHILS ABSOLUTE AUTO 0.02 K/mm3 (0.00-0.68); EOSINOPHILS PERCENT AUTO 0 % (0-6); Hematocrit 26.9 % (33.0-51.0); IMMATURE GRAN ABSOLUTE AUTO 0.88 K/mm3 (0.00-0.10); IMMATURE GRAN PERCENT AUTO 4 % (0-1); LYMPHOCYTES ABSOLUTE AUTO 0.78 K/mm3 (0.84-5.20); LYMPHOCYTES PERCENT AUTO 4 % (21-46); MONOCYTES ABSOLUTE AUTO 0.96 K/mm3 (0.16-1.47); MONOCYTES PERCENT AUTO 5 % (4-13); Mean Corpuscular HGB 33.3 pg (26.0-34.0); Mean Corpuscular HGB Conc 33.5 g/dL (31.5-36.5); Mean Corpuscular Volume 100 fL (80-100); Mean Platelet Volume 9.8 fL (9.1-12.4); NEUTROPHILS ABSOLUTE AUTO 18.15 K/mm3 (1.96-9.15); NEUTROPHILS PERCENT AUTO 87 % (41-73); NRBC ABSOLUTE 0.02 K/mm3 (0.00-0.02); NRBC Auto 0.1 /100 WBC (0.0-0.2); Platelet Count 447 K/mm3 (150-400); RDW Coefficient Variation 14.5 % (11.7-14.2); White Blood Cell Count 20.85 K/mm3 (4.00-11.30)
[2020-07-03 06:05] LABS: Albumin, Blood 1.8 g/dL (3.4-5.0); Albumin/Globulin Ratio 0.4 (0.8-1.8); Bilirubin, Total 0.4 mg/dL (0.1-1.0); Bun/Creatinine Ratio 8.9 (12.0-20.0); Calcium, Blood 8.2 mg/dL (8.5-10.1); Creatinine, Blood 1.23 mg/dL (0.40-1.00); Globulin, Blood 4.2 g/dL (2.2-4.0); Potassium, Blood 2.7 mmol/L (3.5-5.5)
--- NOTE | 2020-07-03 07:40 | NUR ---
PT had more alertness this shift. She removed her oxygen multiple times & room air sat 82 % which returns to greater than 90% quickly on 4 l via oximizer. She was medicated several times with dilaudid 0.5 mg for abd pain of 8 with good relief. Loose stools several times, stool results for cdiff test pending. continues in isolation for HX of MRSA & rule out CDIFF. Tolerated clear liquid diet & had poor appetite but when told she needed to drink she drank 2 ensure clears & tolerated well. Fed 1/2 protein rich jello. Asking to dc home but is dependent for adls toileting bed mobility & transfers. Baseline partial paralysis.
[2020-07-03 12:24] LABS: Appearance, Urine Clear (Clear); Bilirubin, Urine Neg (Neg); Blood, Urine 1+ (Neg); Color, Urine Yellow (P-Yellow); Glucose Qualitative, Urine Neg (Neg); Ketones, Urine Neg (Neg); Leukocyte Esterase, Urine Neg (Neg); Nitrite, Urine Neg (Neg); Protein, Urine Neg (Neg); Specific Gravity, Urine 1.005 (1.003-1.022); Urobilinogen, Urine NORM (Normal)
--- NOTE | 2020-07-03 12:29 | NUR ---
PT TO IMAGAING FOR CT ABD AND PELVIS.
--- NOTE | 2020-07-03 12:47 | NUR ---
PT BACK TO ROOM FROM IMAGING @ 8451. CALL LIGHT WITHIN REACH AND BED POSITIONED AT LOWEST POINT.
--- NOTE | 2020-07-03 13:07 | NUR ---
PT O2 SATING AROUND 86% AT 3-4 L/MIN. PATIENT IN PAIN AND BREATHING IRREGULARLY. PAIN TREATED PER EMAR. OXYGEN INCREASED TO 6 L/MIN AND IS NOW SATING AT 88-90%. ALSO PLACED OXYMIZER IN PTS MOUTH BECAUSE SHE TENDS TO BE A MOUTH BREATHER.
[2020-07-03 13:25] LABS: Bacteria Few /hpf; Squamous Epithelial Cells Not Seen /hpf (Few); White Blood Cells, Urine 0-2 /hpf (0-5)
--- NOTE | 2020-07-03 17:05 | NUR ---
DR ROGERS IN TO SEE PT. PER DR ROGERS STOP BANANA BAG AND NS AT 75ML/HR. START CLINIMIX AT 100ML/HR AND CONSULT CASH ON DELIVERY CLERK FOR POSSIBLY ADDING MULTIVITAMINS TO CLINIMIX. PER DR ROGERS GIVEN 500ML NS BOLUS NOW AND IF PT TOLERATES GIVE ANOTHER 500ML BOLUS IN TWO HOURS.
--- NOTE | 2020-07-03 17:47 | NUR ---
SHIFT SUMMARY PT IN SEVERE PAIN T/O THE DAY R/T SEVERE PANCREATITIS CONFIRMED BY CT SCAN THAT PT HAD TODAY. PAIN TREATED WITH DIALUDID PER EMAR. PT K+ WAS STILL DROPING WITH ORAL REPLACEMENT, PT ALSO BECOMING NAUSEATED AFTER TAKING MEDS POSSIBLY DUE TO THE LACK OF EATING/DRINKING. IV K+ WAS STARTED TODAY AND ORAL K+ D/C.IV NUTRITION HAS BEEN ORDERED FOR PT TO BEGIN TOMORROW, ALONG WITH A CRNA CONSULT TO DETERMINE IF PT IS STILL GOING TO NEED MULTIVITAMIN. BANANA BAG HAS BEEN D/C. YEAST NOTED ON PT TONGUE, NYSTATIN MOUTHWASH ORDERED AND CAN START RECIEVING TONIGHT. PT IS RECIEVING 2 500 ML BOLUS WELL PER PROVIDER ORDER. PT WORKED WITH PT/OT AND HANDLED IT WELL. PT IS STILL A 2 PERSON ASSIST TO BSC. PT NOW ON 3.5 L/MIN VIA OXYMIZER. PT WAS TITRATED UP AT TIMES DUE TO OX SATS DROPPING BELOW 88%. TITRATED UP TO 6 L/MIN.
[2020-07-04 05:52] LABS: BASOPHILS ABSOLUTE AUTO 0.07 K/mm3 (0.00-0.23); BASOPHILS PERCENT AUTO 0 % (0-2); EOSINOPHILS ABSOLUTE AUTO 0.04 K/mm3 (0.00-0.68); EOSINOPHILS PERCENT AUTO 0 % (0-6); Hematocrit 24.6 % (33.0-51.0); Hemoglobin 8.4 g/dL (11.5-16.0); IMMATURE GRAN ABSOLUTE AUTO 0.83 K/mm3 (0.00-0.10); IMMATURE GRAN PERCENT AUTO 4 % (0-1); LYMPHOCYTES ABSOLUTE AUTO 0.67 K/mm3 (0.84-5.20); LYMPHOCYTES PERCENT AUTO 3 % (21-46); MONOCYTES ABSOLUTE AUTO 1.05 K/mm3 (0.16-1.47); MONOCYTES PERCENT AUTO 4 % (4-13); Mean Corpuscular HGB 33.7 pg (26.0-34.0); Mean Corpuscular HGB Conc 34.1 g/dL (31.5-36.5); Mean Corpuscular Volume 99 fL (80-100); Mean Platelet Volume 9.5 fL (9.1-12.4); NEUTROPHILS ABSOLUTE AUTO 21.34 K/mm3 (1.96-9.15); NEUTROPHILS PERCENT AUTO 89 % (41-73); Platelet Count 452 K/mm3 (150-400); RDW Coefficient Variation 14.7 % (11.7-14.2); RDW Standard Deviation 52.5 fL (35.1-46.3); Red Blood Cell Count 2.49 M/mm3 (3.80-5.20)
[2020-07-04 06:11] LABS: Albumin, Blood 1.6 g/dL (3.4-5.0); Albumin/Globulin Ratio 0.4 (0.8-1.8); Bilirubin, Total 0.3 mg/dL (0.1-1.0); Bun/Creatinine Ratio 10.7 (12.0-20.0); Creatinine, Blood 1.12 mg/dL (0.40-1.00); Globulin, Blood 4.4 g/dL (2.2-4.0)
--- NOTE | 2020-07-04 06:39 | NUR ---
shutdown coordinator SUMMARY Patient slept well through most of the shift waking only when staff needed vital signs, assessment or administer medications. once awake, patient would become quite distraught with diffuse abdominal pain causing her to writhe and moan in the bed. pain was easily relieved with hydromorphone which allowed Mayte to easily fall back to sleep. Bowel tones hypoactive with guarding and extreme tenderness in all quads, but expecially on the left.
--- NOTE | 2020-07-04 14:07 | NUR ---
RECEIVED VERBAL ORDER FROM DR. MCKEON TO D/C ALL ANTIBIOTICS AND FLUIDS. ALSO TO CHANGE DIET FROM CLEAR TO SOFT, TO ADVANCE DIET TOLERATED, AND TO ADD 2MG ATIVAN IV Q4H NEEDED FOR ANXIETY OR ALCOHOL WITHDRAWAL. ORDERS UPDATED.
--- NOTE | 2020-07-04 19:39 | NUR ---
Shift Summary A/Ox3. Patient knew hospital/city, month/year, self, family. Does know a little about reason for admission (abdominal pain). Up to chair x 1-2 assist c gait. Worked with physical therapy today, declined to work with occupational therapy. Medicate for nausea x 1, for 7/10 pain x 3 with minimal relief. Patient appeared to be hallucinating talking to her mom in the room. Also states she does not want to go back to the motel where she was living because "there's just too much drugs there." Medicated her for anxiety x 1 with good results. PPN started this evening @ 96 mLs/hr. All abx, fluids, and clinimix d/c per MD orders. Report given to oncoming RN.
--- NOTE | 2020-07-05 03:47 | NUR ---
SHIFT SUMMARY PATIENT ANXIOUS FIRST PART OF SHIFT WITH MULTIPLE BED EXITS ALARMS. IV ATIVAN GIVEN PER EMAR FOR ANXIETY. AXOX 2-3 AND ONE TO ASSIST TO BSC. LERMA FOR RETENTION DRAINING TO GRAVITY. REPORTED ABDOMINAL PAIN AND RECEIVED IV DILAUDID 1 MG PER EMAR. PATIENT ABLE TO SLEEP WITH PAIN MANAGEMENT. ON 3.5 L O2 NC. VSS/AFBERILE. PIV REMAINS INTACT. PPN INFUSING AT 96 mL/HR. BASELINE MOANING WHEN AWAKE. CALL LIGHT IN REACH. BED IN LOWEST POSITION AND ALARM ACTIVATED. WILL CONTINUE TO MONITOR UNTIL DAY SHIFT NURSE ASSUMES CARE.
[2020-07-05 05:23] LABS: Triglycerides 211 mg/dL (30-160)
--- NOTE | 2020-07-05 18:19 | NUR ---
PT HAS BEEN VERY DROWSY T/O THE SHIFT. INTERACTS APPROPRIATELY WHEN AWAKE, DOES COMPLAIN OF ABD PAIN, RUBBING ABD AND SOMETIMES MOANING, IV DILAUDID IS EFFECTIVE. UP TO BEDSIDE COMMODE, NO RESULTS, FLATUS ONLY. NO ACUTE CHANGES NOTED THIS SHIFT, WILL CONTINUE TO MONITOR AND REPORT TO ONCOMING RN.
--- NOTE | 2020-07-06 03:41 | NUR ---
SHIFT SUMMARY PATIENT DESTATS WHEN UP TO SIDE OF BED AND EXTREMELY ANXIOUS, DOWN INTO THE LOW 80'S AND EVEN 70'S AT TIMES. SHE WILL PULL OXYGEN OFF AND CONTINUOUS PULSE OXIMETRY PROBE. NOT EASILY REDIRECTABLE. IV ATIVAN GIVEN PER EMAR FOR ANXIETY. PATIENT REPORTED ABDOMINAL PAIN T/O THE SHIFT AND IV DILAUDID 1 MG GIVEN WITH REDUCTION IN PAIN. PATIENT THAN ABLE TO SLEEP AND O2 STATS BACK INTO THE 90'S. AXO X 2-3 AND BEDREST. LERMA PATENT AND DRAINING TO GRAVITY. PIV INTACT AND PPN INFUSING AT 96mL/HR. CBG 110. VSS/AFEBRILE. CALL LIGHT IN REACH. BED IN LOWEST POSITION. WILL CONTINUE TO MONITOR UNTIL DAY SHIFT NURSES ASSUMES CARE.
[2020-07-06 05:13] LABS: Hematocrit 24.9 % (33.0-51.0); Hemoglobin 8.5 g/dL (11.5-16.0); Mean Corpuscular HGB 33.6 pg (26.0-34.0); Mean Corpuscular HGB Conc 34.1 g/dL (31.5-36.5); Mean Corpuscular Volume 98 fL (80-100); Mean Platelet Volume 9.8 fL (9.1-12.4); Platelet Count 680 K/mm3 (150-400); RDW Coefficient Variation 15.1 % (11.7-14.2); RDW Standard Deviation 54.1 fL (35.1-46.3); Red Blood Cell Count 2.53 M/mm3 (3.80-5.20); White Blood Cell Count 24.19 K/mm3 (4.00-11.30)
[2020-07-06 05:37] LABS: BAND PERCENT MAN 1 % (0-8); BASOPHILS PERCENT MAN 0 % (0-2); EOSINOPHILS ABSOLUTE MAN 0.24 K/mm3 (0.00-0.68); EOSINOPHILS PERCENT MAN 1 % (0-6); LYMPHOCYTES ABSOLUTE MAN 1.45 K/mm3 (0.84-5.20); LYMPHOCYTES PERCENT MAN 6 % (21-46); METAMYELOCYTE ABSOLUTE MAN 0.24 K/mm3 (0.00-0.00); METAMYELOCYTE PERCENT MAN 1 % (0-0); MONOCYTES ABSOLUTE MAN 1.45 K/mm3 (0.16-1.47); MONOCYTES PERCENT MAN 6 % (4-13); MYELOCYTE ABSOLUTE MAN 0.24 K/mm3 (0.00-0.00); MYELOCYTE PERCENT MAN 1 % (0-0); NEUTROPHILS ABSOLUTE MAN 20.56 K/mm3 (1.96-9.15); SEG NEUTROPHILS PERCENT MAN 84 % (41-73); TOTAL CELLS COUNTED 100
[2020-07-06 05:41] LABS: Anion Gap 8 mmol/L (6-16); Blood Urea Nitrogen 16 mg/dL (8-24); Bun/Creatinine Ratio 19.7 (12.0-20.0); CO2, Blood 20 mmol/L (21-32); Calcium, Blood 8.5 mg/dL (8.5-10.1); Chloride, Blood 103 mmol/L (98-108); Creatinine, Blood 0.81 mg/dL (0.40-1.00); Glomerular Filtration Rate >60 (60-); Glucose, Blood 121 mg/dL (70-99); Phosphorus, Blood 4.3 mg/dL (2.5-4.9); Potassium, Blood 4.9 mmol/L (3.5-5.5); Sodium, Blood 131 mmol/L (136-145)
--- NOTE | 2020-07-06 06:05 | NUR ---
PATIENT CONTINUES TO BE NON-COMPLIANT WITH KEEPING HER OXYGEN ON AND TRYING TO BED EXIT. PATIENT NOT ABLE TO FOLLOW DIRECTIONS AT THIS TIME. PATIENT OXYGEN BACK ON AND BACK INTO BED. IMMEDIATELY DESTATS INTO THE LOW TO MID 80'S WHEN TRYING TO GET UP OR PULLING OXYGEN OFF.
--- NOTE | 2020-07-06 17:58 | NUR ---
SHIFT SUMMARY: A&O X 1 AT START OF SHIFT, MORE ALERT AT THE END OF SHIFT. BREATH SOUNDS DIM THROUGHOUT, O2 @ 3.5 L/MIN NC (DOES NOT USE AT HOME). HAD 2 LARGE BM'S THIS EVENING PRIOR TO ANY BOWEL MEDS, INCONTINENT OF B&B, DOES NOT HAVE LERMA AT BASELINE. LERMA D/C'D, IS VOIDING. SKIN ON BOTTOM EXCORIATED. C/O ABD DISCOMFORT; BELLY IS MODERATELY DISTENDED, FIRM, WITH HYPOACTIVE BS, MEDICATED FOR NAUSEA X 1. SPOKE TO PT'S GRIFFIN DAVIS, STATED THAT PATIENT IS CURRENTLY LIVING IN COCKROACH INFESTED HOTEL ROOM; WILL DEFINITELY NEED PLACEMENT.
--- NOTE | 2020-07-06 18:34 | NUR ---
PATIENT HAS ASSEMBLER HANDBAGS NAMED [facility] AT [facility]. DOES NOT USE OXYGEN AT HOME. HAS ELECTRIC SCOOTER FOR MOBILITY. DOES NOT HAVE INDWELLING CATHETER AND DOES NOT STRAIGHT CATH, WEARS ATTENDS.
--- NOTE | 2020-07-07 | NUR ---
07/06/20 2335 BED ALARM SOUNDING. PT TRYING TO GET OUT OF BED "TO PEE". ASSISTED TO BSC BUT PT ALREADY VOIDED IN ATTENDS BRIEFS---LARGE AMOUNT. SUSI-CARE GIVEN AND ASSISTED BACK TO BED.
--- NOTE | 2020-07-07 07:35 | NUR ---
07/07/20 0610 AWAKENED FOR AM MED. INCONTINENT OF LARGE AMT. OF URINE IN BRIEF. SUSI-CARE GIVEN. DECLINED ANY ORAL INTAKE AT THIS TIME. PT SLEPT BETTER AFTER MEDICATED FOR ANXIETY AROUND 10 PM.
--- NOTE | 2020-07-07 18:42 | NUR ---
*SHIFT SUMMARY* PT AxOx3-4 TODAY. PLEASANT AND COOPERATIVE WITH CARE. NAUSEA, ABD PAIN, AND GENERAL MALAISE T/O DAY. MEDICATED PER EMAR. PT APPETITE SIGNIFICANTLY DECREASED. PUSHED FLUIDS AND ENSURE FOR NUTRITION. STILL HAVING LOOSE STOOLS. DR SANDOVAL ORDERED C DIFF COLLECTION. STOOL COLLECTED AND SENT TO LAB TODAY. PT IN TODAY TO WORK WITH PT. 1 PERSON TRANSFER. NORMALLY USED W/C AT HOME D/T INCOMPLETE PARAPLEGIA. FALL RISK. BED ALARM ON, BUT CALLED APPROPRIATELY TODAY. CONTACT PRECAUTION FOR HX MRSA. LUNG CRACKLES IN LAURYN BASES. REPORTS NOT SLEEPING WELL LAST NOC AND NOT RESTING TODAY. DISCUSSED GETTING HOME MED, AMTRIPTYLINE ORDERED TO HELP SLEEP TONIGHT. PRESS BUCKER DR NATACHA FARLEY'D ORDER. CASE MANAGEMENT WORKING ON PLACEMENT.
[2020-07-08 05:20] LABS: BASOPHILS ABSOLUTE AUTO 0.05 K/mm3 (0.00-0.23); BASOPHILS PERCENT AUTO 0 % (0-2); EOSINOPHILS ABSOLUTE AUTO 0.01 K/mm3 (0.00-0.68); EOSINOPHILS PERCENT AUTO 0 % (0-6); Hematocrit 22.6 % (33.0-51.0); Hemoglobin 7.7 g/dL (11.5-16.0); IMMATURE GRAN ABSOLUTE AUTO 0.54 K/mm3 (0.00-0.10); IMMATURE GRAN PERCENT AUTO 4 % (0-1); LYMPHOCYTES ABSOLUTE AUTO 1.37 K/mm3 (0.84-5.20); LYMPHOCYTES PERCENT AUTO 10 % (21-46); MONOCYTES ABSOLUTE AUTO 1.14 K/mm3 (0.16-1.47); MONOCYTES PERCENT AUTO 8 % (4-13); Mean Corpuscular HGB 33.6 pg (26.0-34.0); Mean Corpuscular HGB Conc 34.1 g/dL (31.5-36.5); Mean Corpuscular Volume 99 fL (80-100); Mean Platelet Volume 9.6 fL (9.1-12.4); NEUTROPHILS ABSOLUTE AUTO 10.67 K/mm3 (1.96-9.15); NEUTROPHILS PERCENT AUTO 77 % (41-73); Platelet Count 933 K/mm3 (150-400); RDW Coefficient Variation 15.1 % (11.7-14.2); RDW Standard Deviation 53.7 fL (35.1-46.3); Red Blood Cell Count 2.29 M/mm3 (3.80-5.20); White Blood Cell Count 13.78 K/mm3 (4.00-11.30)
[2020-07-08 05:41] LABS: Alanine Aminotransfer (ALT/SGP 11 U/L (12-78); Albumin, Blood 1.7 g/dL (3.4-5.0); Albumin/Globulin Ratio 0.4 (0.8-1.8); Alk Phos 152 U/L (50-136); Anion Gap 8 mmol/L (6-16); Aspartate Aminotrans (AST/SGOT 21 U/L (12-37); Bilirubin, Total 0.3 mg/dL (0.1-1.0); Blood Urea Nitrogen 10 mg/dL (8-24); Bun/Creatinine Ratio 13.2 (12.0-20.0); CO2, Blood 19 mmol/L (21-32); Calcium, Blood 8.2 mg/dL (8.5-10.1); Chloride, Blood 109 mmol/L (98-108); Creatinine, Blood 0.76 mg/dL (0.40-1.00); Globulin, Blood 4.3 g/dL (2.2-4.0); Glomerular Filtration Rate >60 (60-); Glucose, Blood 96 mg/dL (70-99); Potassium, Blood 3.8 mmol/L (3.5-5.5); Sodium, Blood 136 mmol/L (136-145)
--- NOTE | 2020-07-08 06:39 | NUR ---
07/08/20 0630 LOW HGB = 7.7 AND HCT = 22.6 VITALS STABLE. RN PAGED ON-CALL MD TO INFORM. MD SAID, "JUST WATCH FOR NOW." PT INCONTINENT OF URINEIN BRIEFS AND DOES NOT CALL TO INFORM STAFF. SKIN BARRIER CREAM APPLIED TO REDDENED AREAS IN GROIN AFTER SUSI-CARE. ENCOURAGED ORAL INTAKE BUT WOULD ONLY TAKE SIPS. STATES SHE IS NOT THIRSTY OR HUNGRY THIS SHIFT.
[2020-07-08 16:22] LABS: BASOPHILS ABSOLUTE AUTO 0.07 K/mm3 (0.00-0.23); BASOPHILS PERCENT AUTO 1 % (0-2); EOSINOPHILS ABSOLUTE AUTO 0.01 K/mm3 (0.00-0.68); EOSINOPHILS PERCENT AUTO 0 % (0-6); Hematocrit 26.3 % (33.0-51.0); Hemoglobin 8.7 g/dL (11.5-16.0); IMMATURE GRAN ABSOLUTE AUTO 0.34 K/mm3 (0.00-0.10); IMMATURE GRAN PERCENT AUTO 2 % (0-1); LYMPHOCYTES ABSOLUTE AUTO 1.27 K/mm3 (0.84-5.20); LYMPHOCYTES PERCENT AUTO 9 % (21-46); MONOCYTES ABSOLUTE AUTO 0.97 K/mm3 (0.16-1.47); MONOCYTES PERCENT AUTO 7 % (4-13); Mean Corpuscular HGB 33.3 pg (26.0-34.0); Mean Corpuscular HGB Conc 33.1 g/dL (31.5-36.5); Mean Corpuscular Volume 101 fL (80-100); Mean Platelet Volume 9.5 fL (9.1-12.4); NEUTROPHILS ABSOLUTE AUTO 11.83 K/mm3 (1.96-9.15); NEUTROPHILS PERCENT AUTO 82 % (41-73); RDW Coefficient Variation 15.5 % (11.7-14.2); RDW Standard Deviation 56.3 fL (35.1-46.3); Red Blood Cell Count 2.61 M/mm3 (3.80-5.20); White Blood Cell Count 14.49 K/mm3 (4.00-11.30)
--- NOTE | 2020-07-08 16:25 | NUR ---
PT'S FATHER CALLED AND WISHED TO SPEAK TO THE PHYSICIAN. DOCTOR SANDOVAL NOTIFIED AND PHONE NUMBER GIVEN.
[2020-07-08 16:31] LABS: Platelet Count 1070 K/mm3 (150-400)
--- NOTE | 2020-07-08 18:11 | NUR ---
SHIFT SUMMARY PT A/O X3; PLEASANT AND COOPERATIVE WITH CARE. PT HAS BEEN CONT/INCONT FOR MOST OF THE SHIFT. REDNESS/EXCORIATION PRESENT ON THE SUSI AREA. PT UP WITH A 1-2 PERSON ASSIST TO THE CHAIR AND THE BSC. FREQUENT RED TINGED STOOLS THIS SHIFT. MALOX ORDERED FOR STOMACH UPSET. PT ENCOURAGED TO EAT MORE THIS SHIFT. ATE LUNCH BUT REFUSED BREAKFAST AND DINNER. DRINKING ENSURES. CLINIMIX RUNNING AT 75. VSS. WILL CONTINUE TO MONITOR.
--- NOTE | 2020-07-09 04:28 | NUR ---
SHIFT SUMMARY ADMITTED FOR PNEUMONIA. FULL CODE. 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 HX OF PANCREATITIS, ETOH. FOUND TO HAVE A CLOT IN THE PORTAL VEIN. PT NPO ORDERED EXCEPT FOR MEDS, CONTRAST, AND ICE CHIPS. CLINIMIX INFUSING ORDERED. CT SCAN SCHEDULED FOR TODAY OF THE ABDOMEN. THE PT STATED HER PAIN IS INCREASING STEADILY IN HER ABDOMEN. PAIN MEDICATION IS AVAILABLE IN THE [facility]. PLAN IS FOR PLACEMENT IN A SNF. SHE IS NONCOMPLIANT WITH ORDERED BIPAP.
[2020-07-09 05:23] LABS: Hematocrit 24.3 % (33.0-51.0); Hemoglobin 8.1 g/dL (11.5-16.0); Mean Corpuscular HGB 32.8 pg (26.0-34.0); Mean Corpuscular HGB Conc 33.3 g/dL (31.5-36.5); Mean Corpuscular Volume 98 fL (80-100); Mean Platelet Volume 9.2 fL (9.1-12.4); RDW Coefficient Variation 15.1 % (11.7-14.2); RDW Standard Deviation 53.6 fL (35.1-46.3); Red Blood Cell Count 2.47 M/mm3 (3.80-5.20); White Blood Cell Count 14.67 K/mm3 (4.00-11.30)
[2020-07-09 05:26] LABS: Platelet Count 1186 K/mm3 (150-400)
[2020-07-09 05:34] LABS: Alanine Aminotransfer (ALT/SGP 12 U/L (12-78); Albumin, Blood 1.9 g/dL (3.4-5.0); Albumin/Globulin Ratio 0.4 (0.8-1.8); Alk Phos 145 U/L (50-136); Anion Gap 7 mmol/L (6-16); Aspartate Aminotrans (AST/SGOT 20 U/L (12-37); Bilirubin, Total 0.2 mg/dL (0.1-1.0); Blood Urea Nitrogen 11 mg/dL (8-24); Bun/Creatinine Ratio 15.4 (12.0-20.0); CO2, Blood 19 mmol/L (21-32); Calcium, Blood 8.6 mg/dL (8.5-10.1); Chloride, Blood 112 mmol/L (98-108); Creatinine, Blood 0.72 mg/dL (0.40-1.00); Globulin, Blood 4.5 g/dL (2.2-4.0); Glomerular Filtration Rate >60 (60-); Glucose, Blood 119 mg/dL (70-99); Potassium, Blood 3.8 mmol/L (3.5-5.5); Sodium, Blood 138 mmol/L (136-145); Total Protein, Blood 6.4 g/dL (6.4-8.2)
[2020-07-09 06:18] LABS: BASOPHILS PERCENT MAN 0 % (0-2); EOSINOPHILS ABSOLUTE MAN 0.44 K/mm3 (0.00-0.68); EOSINOPHILS PERCENT MAN 3 % (0-6); LYMPHOCYTES ABSOLUTE MAN 1.76 K/mm3 (0.84-5.20); LYMPHOCYTES PERCENT MAN 12 % (21-46); MONOCYTES ABSOLUTE MAN 0.73 K/mm3 (0.16-1.47); MONOCYTES PERCENT MAN 5 % (4-13); MYELOCYTE ABSOLUTE MAN 0.29 K/mm3 (0.00-0.00); MYELOCYTE PERCENT MAN 2 % (0-0); NEUTROPHILS ABSOLUTE MAN 11.29 K/mm3 (1.96-9.15); SEG NEUTROPHILS PERCENT MAN 77 % (41-73); TOTAL CELLS COUNTED 100
[2020-07-09 06:19] LABS: PROMYELOCYTE ABSOLUTE MAN 0.14 K/mm3 (0.00-0.00); PROMYELOCYTE PERCENT MAN 1 % (0-0)
--- NOTE | 2020-07-09 17:20 | NUR ---
SHIFT SUMMARY PT A/O X3. CT SCAN OF THE ABD PERFORMED THIS AM. PT C/O INCREASING PAIN IN HER ABD. MEDICATIONS IN EMR FOR PAIN. ATIVAN GIVEN WELL FOR ANXIETY. PT HAS BEEN SLEEPING FOR THE MAJORITY OF THE DAY. SHE REPORTS NOT BEING ABLE TO SLEEP FOR THE LAST TWO DAYS. DIET CHANGED FROM NPO TO FULL LIQUID. CLINIMIX RUNNING. VSS. CURRENTLY RESTING IN BED WITH CALL LIGHT IN REACH.
[2020-07-10 05:08] LABS: BASOPHILS ABSOLUTE AUTO 0.09 K/mm3 (0.00-0.23); BASOPHILS PERCENT AUTO 1 % (0-2); EOSINOPHILS PERCENT AUTO 0 % (0-6); Hematocrit 24.4 % (33.0-51.0); IMMATURE GRAN ABSOLUTE AUTO 0.43 K/mm3 (0.00-0.10); IMMATURE GRAN PERCENT AUTO 3 % (0-1); LYMPHOCYTES ABSOLUTE AUTO 1.55 K/mm3 (0.84-5.20); LYMPHOCYTES PERCENT AUTO 9 % (21-46); MONOCYTES ABSOLUTE AUTO 1.48 K/mm3 (0.16-1.47); MONOCYTES PERCENT AUTO 9 % (4-13); Mean Corpuscular HGB 32.8 pg (26.0-34.0); Mean Corpuscular HGB Conc 32.8 g/dL (31.5-36.5); Mean Corpuscular Volume 100 fL (80-100); Mean Platelet Volume 9.3 fL (9.1-12.4); NEUTROPHILS ABSOLUTE AUTO 13.22 K/mm3 (1.96-9.15); NEUTROPHILS PERCENT AUTO 79 % (41-73); RDW Coefficient Variation 15.1 % (11.7-14.2); RDW Standard Deviation 54.3 fL (35.1-46.3); Red Blood Cell Count 2.44 M/mm3 (3.80-5.20); White Blood Cell Count 16.77 K/mm3 (4.00-11.30)
[2020-07-10 05:12] LABS: Platelet Count 1244 K/mm3 (150-400)
--- NOTE | 2020-07-10 05:28 | NUR ---
SHIFT SUMMARY ADMITTED FOR PNEUMONIA. FULL CODE. ORDERED CLINIMIX HAS COMPLETED INFUSION. IV HAS INFILTRATED AND BEEN REMOVED. PT IS HIGHLY AGITATED AT THIS TIME AND IS NOT WANTING TO BE POKED RIGHT NOW. SHE IS RESTING AT THIS TIME QUIETLY. SHE HAS HAD SEVERE ABDOMINAL PAIN, AND HAS RECEIVED CT SCANS TO TRY TO REVEAL THE CAUSE. HER PLATELETS ARE TRENDING UP AND I WILL BE INFORMING THE [facility] DR OF THIS WHEN HE COMES ON. HX OF PANCREATITIS
[2020-07-10 05:53] LABS: Alanine Aminotransfer (ALT/SGP 11 U/L (12-78); Albumin/Globulin Ratio 0.4 (0.8-1.8); Alk Phos 145 U/L (50-136); Anion Gap 8 mmol/L (6-16); Aspartate Aminotrans (AST/SGOT 23 U/L (12-37); Bilirubin, Total 0.3 mg/dL (0.1-1.0); Blood Urea Nitrogen 13 mg/dL (8-24); Bun/Creatinine Ratio 16.6 (12.0-20.0); CO2, Blood 18 mmol/L (21-32); Calcium, Blood 8.6 mg/dL (8.5-10.1); Chloride, Blood 108 mmol/L (98-108); Creatinine, Blood 0.78 mg/dL (0.40-1.00); Globulin, Blood 4.6 g/dL (2.2-4.0); Glomerular Filtration Rate >60 (60-); Glucose, Blood 96 mg/dL (70-99); Potassium, Blood 4.4 mmol/L (3.5-5.5); Sodium, Blood 134 mmol/L (136-145); Total Protein, Blood 6.6 g/dL (6.4-8.2)
--- NOTE | 2020-07-10 18:35 | NUR ---
SHIFT SUMMARY- PT HAD A PICC LINE PLACED IN THE RIGHT UPPER ARM. TODAY TPN WAS STARTED THIS EVENING, CBG ORDERED Q6 UNTIL BG IS STABLE WITH THE TPN. CALLED DR DICKENS PER DR SANDOVAL REQUEST TO CONFIRM HE RECIEVED THE CONSULT REQUEST FROM THE DR. HE DID AND WILL SEE THE PT LATER THIS EVENING. PT HAS BEEN MEDICATED T/O THE DAY WITH IV AND PO PAIN MEDICATION. LOVENOX WAS GIVEN THIS MORNING PER DR SANDOVAL OK. LOVENOX DC'D THIS EVENING FOR POSSIBLE PROCEDURE TOMORROW. PT NPO AT MIDNIGHT. PT WAS MEDICATED FOR NAUSEA AND PAIN THIS EVENING AFTER SHE ATE TWO BITES OF PUDDING. PT HAS NO APPETITE. PT ONE PERSON ASSIST FOR TRANSFERS. PT DOES NOT CALL APPROPRIATELY, BED ALARM FOR SAFETY.
--- NOTE | 2020-07-11 04:00 | NUR ---
SHIFT SUMMARY ADMITTED FOR PNEUMONIA. FULL CODE. PT EXPERIENCING SEVERE ABDOMINAL PAIN WITH MINIMAL ORAL INTAKE. HX: PANCREATITIS. CT SHOWED PERIPANCREATIC FLUID. A CT GUIDED ASPIRATION OF A SAMPLE OF THIS FLUID BY RADIOLOGY IS SCHEDULED FOR TODAY. PT HAS BEEN NPO SINCE MIDNIGHT. PT RECEIVED A PICC LINE YESTERDAY FOR RECEIVING TPN, INFUSING AT GOAL RATE OF 85 ML/HR. GI CONSULT IS DR. DICKENS TO R/O PSEUDOMEMBRANOUS COLITIS. AWAITING MORNING LABS. SHE HAS REQUIRED PAIN MEDICATION AND ANXIETY MEDICATION THIS SHIFT. SHE CAN BECOME CONFUSED AND FORGETFUL AT TIMES. CONTACT PRECAUTIONS FOR HX OF MRSA IN AN OLD WOUND, NOW HEALED.
[2020-07-11 04:38] LABS: Hematocrit 26.4 % (33.0-51.0); Hemoglobin 8.5 g/dL (11.5-16.0); Mean Corpuscular HGB 32.8 pg (26.0-34.0); Mean Corpuscular HGB Conc 32.2 g/dL (31.5-36.5); Mean Corpuscular Volume 102 fL (80-100); Mean Platelet Volume 9.1 fL (9.1-12.4); RDW Coefficient Variation 15.2 % (11.7-14.2); RDW Standard Deviation 56.4 fL (35.1-46.3); Red Blood Cell Count 2.59 M/mm3 (3.80-5.20); White Blood Cell Count 14.39 K/mm3 (4.00-11.30)
[2020-07-11 04:40] LABS: Platelet Count 1120 K/mm3 (150-400)
[2020-07-11 04:55] LABS: Alanine Aminotransfer (ALT/SGP 18 U/L (12-78); Albumin, Blood 1.9 g/dL (3.4-5.0); Albumin/Globulin Ratio 0.4 (0.8-1.8); Alk Phos 388 U/L (50-136); Anion Gap 5 mmol/L (6-16); Aspartate Aminotrans (AST/SGOT 34 U/L (12-37); Bilirubin, Total 0.2 mg/dL (0.1-1.0); Blood Urea Nitrogen 10 mg/dL (8-24); Bun/Creatinine Ratio 13.2 (12.0-20.0); CO2, Blood 21 mmol/L (21-32); Calcium, Blood 8.6 mg/dL (8.5-10.1); Chloride, Blood 108 mmol/L (98-108); Creatinine, Blood 0.76 mg/dL (0.40-1.00); Globulin, Blood 4.5 g/dL (2.2-4.0); Glomerular Filtration Rate >60 (60-); Glucose, Blood 96 mg/dL (70-99); Phosphorus, Blood 5.1 mg/dL (2.5-4.9); Potassium, Blood 4.4 mmol/L (3.5-5.5); Sodium, Blood 134 mmol/L (136-145); Total Protein, Blood 6.4 g/dL (6.4-8.2); Triglycerides 213 mg/dL (30-160)
[2020-07-11 06:05] LABS: BASOPHILS ABSOLUTE MAN 0.28 K/mm3 (0.00-0.23); BASOPHILS PERCENT MAN 2 % (0-2); EOSINOPHILS ABSOLUTE MAN 0.28 K/mm3 (0.00-0.68); EOSINOPHILS PERCENT MAN 2 % (0-6); LYMPHOCYTES ABSOLUTE MAN 1.29 K/mm3 (0.84-5.20); LYMPHOCYTES PERCENT MAN 9 % (21-46); METAMYELOCYTE ABSOLUTE MAN 0.14 K/mm3 (0.00-0.00); METAMYELOCYTE PERCENT MAN 1 % (0-0); MONOCYTES ABSOLUTE MAN 1.15 K/mm3 (0.16-1.47); MONOCYTES PERCENT MAN 8 % (4-13); NEUTROPHILS ABSOLUTE MAN 11.22 K/mm3 (1.96-9.15); SEG NEUTROPHILS PERCENT MAN 78 % (41-73); TOTAL CELLS COUNTED 100
--- NOTE | 2020-07-11 15:42 | NUR ---
SHIFT SUMMARY- PT ALERT AND ORIENTED X3 HAS SOME DIFFICULTY WITH THE DATE. PT MEDICATED T/O THE SHIFT FOR PAIN AND NAUSEA. PT WAS NPO AT MIDNIGHT THIS WAS DC'D MID MORNING STATED SHE WILL NOT BE GOING FOR THE TESTS THAT WERE PLANNED. PT SEEMS TO BE LESS DRAWN AND PALE TODAY AND WAS ABLE TO WORK WITH PHYSICAL THERAPY AND OT. LAB VALUES ARE TRENDING IN THE RIGHT DIRECTION TODAY PLAN IS TO CONTINUE TO MONITOR AT THIS TIME. PT MOTHER CALLED AND STATED THE PT HAS BEEN LIVING IN A MOTEL ROOM AND THAT THE FRIDGE SHE WAS PROVIDED WAS "FULL OF ROACHES" MOTHER STATED THE PT HAS BEEN CLOSED UP AWAY FROM THE SMOKE BUT HAS BEEN USING BUG SPRAY FREQUENTLY SHE IS CONCERNED THAT COULD BE A CONTRIBUTING FACTOR TO THE PT ILLNESS. PT MOTHER WOULD LIKE TO BE CONTACTED WHEN A DISCHARGE PLAN IS MADE, OR WITH ANY STATUS CHANGE IN THE PT.
--- NOTE | 2020-07-11 17:54 | NUR ---
CALLED DR SANDOVAL- PLANNED TO MAKE CHANGES TO ATIVAN DOSES BUT NO CHANGES SEEN. PT BECOMING AGGITATED, RECIEVED NEW ORDER FOR ATIVAN ALL OTHERS DC'D. PARAMETERS FOR FENTANYL AND ATIVAN.
[2020-07-12 05:40] LABS: BASOPHILS ABSOLUTE AUTO 0.08 K/mm3 (0.00-0.23); BASOPHILS PERCENT AUTO 1 % (0-2); EOSINOPHILS PERCENT AUTO 0 % (0-6); Hematocrit 24.1 % (33.0-51.0); Hemoglobin 7.7 g/dL (11.5-16.0); IMMATURE GRAN ABSOLUTE AUTO 0.21 K/mm3 (0.00-0.10); IMMATURE GRAN PERCENT AUTO 2 % (0-1); LYMPHOCYTES ABSOLUTE AUTO 1.17 K/mm3 (0.84-5.20); LYMPHOCYTES PERCENT AUTO 10 % (21-46); MONOCYTES PERCENT AUTO 8 % (4-13); Mean Corpuscular HGB 32.6 pg (26.0-34.0); Mean Corpuscular Volume 102 fL (80-100); Mean Platelet Volume 9.2 fL (9.1-12.4); NEUTROPHILS ABSOLUTE AUTO 9.47 K/mm3 (1.96-9.15); NEUTROPHILS PERCENT AUTO 80 % (41-73); RDW Coefficient Variation 14.6 % (11.7-14.2); RDW Standard Deviation 54.4 fL (35.1-46.3); Red Blood Cell Count 2.36 M/mm3 (3.80-5.20); White Blood Cell Count 11.83 K/mm3 (4.00-11.30)
[2020-07-12 05:49] LABS: Platelet Count 1100 K/mm3 (150-400)
[2020-07-12 05:56] LABS: Alanine Aminotransfer (ALT/SGP 12 U/L (12-78); Albumin, Blood 1.9 g/dL (3.4-5.0); Albumin/Globulin Ratio 0.4 (0.8-1.8); Alk Phos 268 U/L (50-136); Anion Gap 7 mmol/L (6-16); Aspartate Aminotrans (AST/SGOT 19 U/L (12-37); Bilirubin, Total 0.1 mg/dL (0.1-1.0); Blood Urea Nitrogen 18 mg/dL (8-24); Bun/Creatinine Ratio 23.8 (12.0-20.0); CO2, Blood 21 mmol/L (21-32); Calcium, Blood 8.6 mg/dL (8.5-10.1); Chloride, Blood 108 mmol/L (98-108); Creatinine, Blood 0.76 mg/dL (0.40-1.00); Globulin, Blood 4.5 g/dL (2.2-4.0); Glomerular Filtration Rate >60 (60-); Glucose, Blood 112 mg/dL (70-99); Magnesium, Blood 2.1 mg/dL (1.6-2.4); Phosphorus, Blood 5.3 mg/dL (2.5-4.9); Potassium, Blood 4.6 mmol/L (3.5-5.5); Sodium, Blood 136 mmol/L (136-145); Total Protein, Blood 6.4 g/dL (6.4-8.2); Triglycerides 205 mg/dL (30-160)
--- NOTE | 2020-07-12 05:59 | NUR ---
SHIFT SUMMARY NO ACUTE CHANGES THIS SHIFT. PT SLEPT T/O NIGHT WAKING TWICE TO ASK FOR ATIVAN. MEDICATED X1 FOR PAIN X1 PER MAR. PT IS ABLE TO REPOSITION SELF IN BED. NO APPARENT DISTRESS OR FURTHER NEEDS AT THIS TIME. PT STATES SHE WAS HAPPY TO HAVE SUCH A RESTFUL NIGHT. CALL LIGHT WITHIN REACH. WILL CONTINUE TO MONITOR UNTIL REPORT GIVEN TO DAY RN.
--- NOTE | 2020-07-12 16:02 | NUR ---
SHIFT SUMMARY PT HAS CRITICAL VALUE OF PLATELETS; DR EASON. DISCUSSED PT PAIN MANAGEMENT AND B/P WITH DR. BAUER, LOWERED THE DOSE OF FENTANYL WITH PARAMETERS. PT RECEIVED FENTANYL & OXY TODAY. PT BP WAS LOW THIS MORNING, PT RECEIVED 500ML NS BOLUS. VS IS NOW STABLE. PT STATED "I AM FEELING REALLY ANXIOUS RIGHT NOW." MEDICATED THE PT PER EMAR. BED IS IN THE LOWEST POSITION; BED ALARM ON; CALL LIGHTS WITHIN REACH; WILL CONT MONITOR.
--- NOTE | 2020-07-13 05:17 | NUR ---
SHIFT SUMMARY NO ACUTE CHANGES THIS SHIFT. MEDICATED X2 FOR ANXIETY AND X2 FOR PAIN. PT IS A&O X4, 1 ASSIST TO THE CHAIR. THE PT HAD DIFFICULTY SLEEPING T/O SHIFT BUT IS NOW RESTING COMFORTABLY. CALL LIGHT AND PERSONAL ITEMS WITHIN REACH. NO APPARENT DISTRESS OR NEES AT THIS TIME. WILL CONTINUE TO MONITOR UNTIL REPORT GIVEN TO DAY RN.
[2020-07-13 05:27] LABS: Phosphorus, Blood 5.6 mg/dL (2.5-4.9)
[2020-07-13 11:23] LABS: BASOPHILS PERCENT AUTO 1 % (0-2); EOSINOPHILS ABSOLUTE AUTO 0.01 K/mm3 (0.00-0.68); EOSINOPHILS PERCENT AUTO 0 % (0-6); Hematocrit 24.9 % (33.0-51.0); Hemoglobin 7.9 g/dL (11.5-16.0); IMMATURE GRAN ABSOLUTE AUTO 0.16 K/mm3 (0.00-0.10); IMMATURE GRAN PERCENT AUTO 2 % (0-1); LYMPHOCYTES ABSOLUTE AUTO 1.23 K/mm3 (0.84-5.20); LYMPHOCYTES PERCENT AUTO 11 % (21-46); MONOCYTES ABSOLUTE AUTO 0.75 K/mm3 (0.16-1.47); MONOCYTES PERCENT AUTO 7 % (4-13); Mean Corpuscular HGB 32.6 pg (26.0-34.0); Mean Corpuscular HGB Conc 31.7 g/dL (31.5-36.5); Mean Corpuscular Volume 103 fL (80-100); Mean Platelet Volume 9.4 fL (9.1-12.4); NEUTROPHILS ABSOLUTE AUTO 8.65 K/mm3 (1.96-9.15); NEUTROPHILS PERCENT AUTO 79 % (41-73); RDW Coefficient Variation 14.3 % (11.7-14.2); RDW Standard Deviation 54.4 fL (35.1-46.3); Red Blood Cell Count 2.42 M/mm3 (3.80-5.20)
[2020-07-13 11:26] LABS: Platelet Count 1016 K/mm3 (150-400)
[2020-07-13 11:29] LABS: Anion Gap 6 mmol/L (6-16); Blood Urea Nitrogen 21 mg/dL (8-24); CO2, Blood 21 mmol/L (21-32); Chloride, Blood 111 mmol/L (98-108); Creatinine, Blood 0.62 mg/dL (0.40-1.00); Glomerular Filtration Rate >60 (60-); Glucose, Blood 114 mg/dL (70-99); Potassium, Blood 4.6 mmol/L (3.5-5.5); Sodium, Blood 138 mmol/L (136-145)
--- NOTE | 2020-07-13 11:32 | NUR ---
PT HAS CRITICAL VALUE- PLATELETS TODAY OF 1016. TRENDING DOWN; CHARGE NURSE WALT AWARE.
--- NOTE | 2020-07-13 14:40 | NUR ---
SHIFT SUMMARY PT AOX4, PT C/O PAIN ON ABD AND HEADACHE OF 8/10; MEDICATED PER EMAR; TOLERATED WELL. RASH PRESENT ON PT SUSI AND COCCYX; DR BAUER AWARE. CREAM APPLIED. VSS. PT WAS FEELING NAUSEATED THIS MORNING; MEDICATED PER EMAR. PT HAS A CRITICAL PLATELET OF 1016- BUT TRENDING DOWN. BED IS IN LOWEST POSITION; CALL LIGHTS WITHIN REACH; AND WILL CONT MONITOR.
[2020-07-14 05:52] LABS: BASOPHILS ABSOLUTE AUTO 0.11 K/mm3 (0.00-0.23); BASOPHILS PERCENT AUTO 1 % (0-2); EOSINOPHILS PERCENT AUTO 0 % (0-6); Hematocrit 25.4 % (33.0-51.0); Hemoglobin 8.3 g/dL (11.5-16.0); IMMATURE GRAN ABSOLUTE AUTO 0.16 K/mm3 (0.00-0.10); IMMATURE GRAN PERCENT AUTO 2 % (0-1); LYMPHOCYTES ABSOLUTE AUTO 1.54 K/mm3 (0.84-5.20); LYMPHOCYTES PERCENT AUTO 15 % (21-46); MONOCYTES ABSOLUTE AUTO 0.78 K/mm3 (0.16-1.47); MONOCYTES PERCENT AUTO 7 % (4-13); Mean Corpuscular HGB 33.9 pg (26.0-34.0); Mean Corpuscular HGB Conc 32.7 g/dL (31.5-36.5); Mean Corpuscular Volume 104 fL (80-100); Mean Platelet Volume 8.9 fL (9.1-12.4); NEUTROPHILS ABSOLUTE AUTO 8.03 K/mm3 (1.96-9.15); NEUTROPHILS PERCENT AUTO 76 % (41-73); RDW Coefficient Variation 14.2 % (11.7-14.2); RDW Standard Deviation 53.5 fL (35.1-46.3); Red Blood Cell Count 2.45 M/mm3 (3.80-5.20); White Blood Cell Count 10.62 K/mm3 (4.00-11.30)
[2020-07-14 06:02] LABS: Platelet Count 1098 K/mm3 (150-400)
[2020-07-14 06:07] LABS: Anion Gap 7 mmol/L (6-16); Blood Urea Nitrogen 20 mg/dL (8-24); CO2, Blood 22 mmol/L (21-32); Calcium, Blood 9.2 mg/dL (8.5-10.1); Chloride, Blood 109 mmol/L (98-108); Creatinine, Blood 0.69 mg/dL (0.40-1.00); Glomerular Filtration Rate >60 (60-); Glucose, Blood 189 mg/dL (70-99); Potassium, Blood 4.5 mmol/L (3.5-5.5); Sodium, Blood 138 mmol/L (136-145)
--- NOTE | 2020-07-14 06:11 | NUR ---
SHIFT SUMMARY PT HAD PERSISTANT HEADACHE THIS SHIFT, MEDICATED PER DEC, PT STATES PAIN WAS UNRELEAVED BY MEDICATION. MEDICATED X1 FOR ANXIETY, AFTER THIS PT SLEPT T/O NIGHT. OTHERWISE NO OTHER ACUTE CHANGES. PT IS LAYING IN BED, BED IN LOWERED POSITION. BED ALARM ON. CALL LIGHT AND PERSONAL BELONGINGS WITHIN REACH. NO APPARENT DISTRESS OR NEEDS AT THIS TIME. WILL CONTINUE TO MONITOR UNTIL REPORT GIVEN TO DAY RN.
--- NOTE | 2020-07-15 04:54 | NUR ---
SHIFT SUMMARY AOX4. VSS. REPORTS NAUSEA 1X-MEDICATED c ZOFRAN, NO EMESIS NOTED. TOLERATING SMALL SIPS OF LIQUID. HAD LRG LOOSE BM THIS SHIFT, NO BLEEDING NOTED. REPORTS ALLOVER ABD PAIN & CONNORS T/O SHIFT, RATING PAIN 8 MEDICATED 2X c 5MG OXYCODONE. PT SLEPT SOUNDLY T/O NIGHT. REPORTED ANXIETY LAST NIGHT, MEDICATED 1X c ATIVAN PER ORDERS. CALL LIGHT IN REACH.
[2020-07-15 04:57] LABS: BASOPHILS ABSOLUTE AUTO 0.16 K/mm3 (0.00-0.23); BASOPHILS PERCENT AUTO 1 % (0-2); EOSINOPHILS ABSOLUTE AUTO 0.01 K/mm3 (0.00-0.68); EOSINOPHILS PERCENT AUTO 0 % (0-6); Hemoglobin 8.2 g/dL (11.5-16.0); IMMATURE GRAN ABSOLUTE AUTO 0.17 K/mm3 (0.00-0.10); IMMATURE GRAN PERCENT AUTO 2 % (0-1); LYMPHOCYTES ABSOLUTE AUTO 1.65 K/mm3 (0.84-5.20); LYMPHOCYTES PERCENT AUTO 15 % (21-46); MONOCYTES ABSOLUTE AUTO 0.86 K/mm3 (0.16-1.47); MONOCYTES PERCENT AUTO 8 % (4-13); Mean Corpuscular HGB 32.7 pg (26.0-34.0); Mean Corpuscular HGB Conc 31.5 g/dL (31.5-36.5); Mean Corpuscular Volume 104 fL (80-100); NEUTROPHILS ABSOLUTE AUTO 8.28 K/mm3 (1.96-9.15); NEUTROPHILS PERCENT AUTO 75 % (41-73); RDW Coefficient Variation 14.2 % (11.7-14.2); RDW Standard Deviation 53.4 fL (35.1-46.3); Red Blood Cell Count 2.51 M/mm3 (3.80-5.20); White Blood Cell Count 11.13 K/mm3 (4.00-11.30)
[2020-07-15 05:04] LABS: Platelet Count 1061 K/mm3 (150-400)
[2020-07-15 05:24] LABS: Anion Gap 6 mmol/L (6-16); Blood Urea Nitrogen 21 mg/dL (8-24); Bun/Creatinine Ratio 28.2 (12.0-20.0); CO2, Blood 23 mmol/L (21-32); Calcium, Blood 9.4 mg/dL (8.5-10.1); Chloride, Blood 108 mmol/L (98-108); Creatinine, Blood 0.75 mg/dL (0.40-1.00); Glomerular Filtration Rate >60 (60-); Glucose, Blood 103 mg/dL (70-99); Potassium, Blood 4.2 mmol/L (3.5-5.5); Sodium, Blood 137 mmol/L (136-145)
--- NOTE | 2020-07-15 17:22 | NUR ---
SHIFT SUMMARY PT IS AOX4. PT MEDICATED FOR PAIN X2 THIS SHIFT. PT C/O MIGRAINE WHICH WAS RELIEVED BY GENECED. PT MEDICATED FOR NAUSEA X1 THIS SHIFT, BUT NO EMESIS. PT WORKED WITH OT AND WALKED IN THE HALLS. PLAN IS TO DC ON TUESDAY AFTER DC'ING THE TPN AND GETTING MORE ORAL INTAKE. PT HAS BEEN IN BED/CHAIR THROUGHOUT SHIFT. PT IN CHAIR, CALL LIGHT IN REACH.
--- NOTE | 2020-07-15 23:19 | NUR ---
TPN TPN WAS DC'D @2300 PER ORDERS. CALL LIGHT IN REACH. GE PT.
--- NOTE | 2020-07-16 05:23 | NUR ---
SHIFT SUMMARY AOX4. VSS. REPORTED 7/10 PAIN IN ABD LAST NIGHT, HOWEVER PT WAS MEDICATED 1 HR PRIOR & STATED PAIN LEVEL HAD DECREASED & WAS STARTING TO FEEL BETTER. ABD TENDER TO PALPATION. ACTIVE BT. TPN DC'D PER ORDERS. REPORTED NAUSEA 1X, MEDICATED c PHENERGAN, NO EMESIS NOTED. HAS BEEN TOLERATING LIQUID DIET. NO C/O HEADACHE T/O SHIFT. REPORTED "RACING THOUGHTS" & HER BRAIN WOULDN'T "SHUT OFF", STATED SHE FELT ANXIOUS-MEDICATED 1X c 1MG PO ATIVAN. CALL LIGHT IN REACH.
--- NOTE | 2020-07-16 17:23 | NUR ---
SHIFT SUMMARY PT IS AOX3. PT MEDICATED X1 FOR ABD PAIN THIS SHIFT AND X1 FOR HEADACHE. PT MEDICATED X1 WITH ZOFRAN FOR NAUSEA. PT APPETITE HAS INCREASED THIS TY AND PT REQUESTED A SNACK. PT HAD CONSULT WITH [facility] FOR POSSIBLE PLACEMENT. POTENTIAL DC TO REHAB FACILITY FOR STRENGTENING PRIOR TO [facility]. PLAN IS TO DC TOMORROW. PT IN BED WITH CALL LIGHT AND PHONE IN REACH. BED ALARM IS ON.
--- NOTE | 2020-07-16 23:00 | NUR ---
1957 PT LYING IN BED, REPORTS ABD CRAMPING AND NAUSEA, PT RECENTLY MEDICATED BY DAY RN, WILL EVAL FOR EFFECT. NOT OTHER APPARENT SIGNS OF DISTRESS. CALL LIGHT IS IN REACH. BED ALARM IS ON.
--- NOTE | 2020-07-16 23:02 | NUR ---
2217 PT LYING IN BED, EYES CLOSED, APPEARS TO BE RESTING. BREATHING IS EVEN, UNLABORED. NO APPARENT SIGNS OF DISTRESS.CALL LIGHT IS IN REACH. BED ALARM IS ON.
--- NOTE | 2020-07-17 01:12 | NUR ---
0031 CHANGED PT. PT DENIES ANY NEED FOR ANYTHING ELSE AT THIS TIME. CALL LIGHT IS IN REACH. BED ALARM IS ON. NO APPARENT SIGNS OF DISTRESS.
--- NOTE | 2020-07-17 03:08 | NUR ---
0200 PT LYING IN BED, EYES CLOSED, APPEARS TO BE RESTING. BREATHING IS EVEN, UNLABORED. NO APPARENT SIGNS OF DISTRESS. CALL LIGHT IS IN REACH. BED ALARM IS ON.
--- NOTE | 2020-07-17 06:36 | NUR ---
0400 PT LYING IN BED, EYES CLOSED, APPEARS TO BE RESTING. WAKES EASILY TO VERBAL STIMULI. NO APPARENT SIGNS OF DISTRESS. CALL LIGHT IS IN REACH.
--- NOTE | 2020-07-17 06:37 | NUR ---
PT IS AAO X 3-4, ON RA. PT REPORTS ABD CRAMPING AND NAUSEA, PT GOT MULT PRN'S ON DAY SHIFT, ATIVAN AT HS FOR NOCS AND SLEPT WELL THROUGHOUT THE NIGHT DENYING THE NEED FOR ANYTHING WHEN ASKED.
--- NOTE | 2020-07-17 06:37 | NUR ---
PT LYING IN BED, EYES CLOSED, APPEARS TO BE RESTING. BREATHING IS EVEN, UNLABORED. NO APPARENT SIGNS OF DISTRESS. CALL LIGHT IS IN REACH. NO OTHE CHANGES THIS SHIFT.
[2020-07-17] MEDS ORDERED: METO100ER PO (13:48)
[2020-07-17] MEDS ORDERED: BUSP10 PO (13:51)
[2020-07-17] MEDS ORDERED: ONDA4 PO (13:52)
[2020-07-17] MEDS ORDERED: OXAYDO5 MG PO (13:55)
--- NOTE | 2020-07-17 15:58 | NUR ---
DISCHARGE/FACILITY TRANSFER NOTE THIS RN GAVE REPORT TO DAINA MICHELE AT [facility]. THIS RN DRESSED PT IN DISPOSABLE SCRUBS PRIOR TO DC AND TOOK TEMPERATURE AT 1545 WHICH WAS 98.6. PT BELONGINGS WITH PT IN BELONGINGS BAG AND CANE PRESENT. PT WHEELED TO ER ENTRANCE BY DIRECTOR OF COUNTERINTELLIGENCE AND HAS LEFT THE BUILDING FOR TRANSPORT TO [facility] AT 1553.
== END 2020-07-17 15:59 | DRG 871 ==
LOC: ER 14:19 → MEDS 14:20 → PCU 18:45 → MEDS 18:45 → PCU 06-29 01:04 → MEDS 07-01 15:15
PROVIDERS: Emergency Medicine; Family Medicine; Hospitalist; Internal Medicine; Internal Medicine Gastroenterology; ADMIT Internal Medicine
PROC: 02HV33Z Insertion of Infusion Device into Superior Vena Cava, Percutaneous Approach (ICD-10-PCS; principal; 2020-07-09)
DX: A41.1 Sepsis due to other specified staphylococcus (principal); J96.01 Acute respiratory failure with hypoxia; K85.90 Acute pancreatitis without necrosis or infection, unspecified; I81 Portal vein thrombosis; N17.9 Acute kidney failure, unspecified; E87.1 Hypo-osmolality and hyponatremia; G82.20 Paraplegia, unspecified; F10.230 Alcohol dependence with withdrawal, uncomplicated; J98.11 Atelectasis; N39.0 Urinary tract infection, site not specified; E87.2 Acidosis; G93.40 Encephalopathy, unspecified; E46 Unspecified protein-calorie malnutrition; Z20.828 Contact with and (suspected) exposure to other viral communicable diseases; F41.9 Anxiety disorder, unspecified; K21.9 Gastro-esophageal reflux disease without esophagitis; E78.5 Hyperlipidemia, unspecified; R19.7 Diarrhea, unspecified; D64.9 Anemia, unspecified; R53.81 Other malaise; Z87.891 Personal history of nicotine dependence; I10 Essential (primary) hypertension; M21.851 Other specified acquired deformities of right thigh; G25.81 Restless legs syndrome; F32.9 Major depressive disorder, single episode, unspecified; R63.0 Anorexia; Z68.22 Body mass index [BMI] 22.0-22.9, adult
CPT/HCPCS: 0202U; 36415; 36569; 36600; 70450; 71045; 71046; 71260; 74177; 76705; 80048; 80053; 80202; 81001; 82607; 82746; 82803; 82947; 83605; 83690; 83735; 83880; 84100; 84145; 84478; 84484; 85007; 85025; 85027; 85651; 86140; 87040; 87086; 87493; 93005; 93010; 94644; 94660; 94664; 94667; 94762; 96361; 96365; 96366; 96375; 97110; 97116; 97162; 97166; 97530; 97535; 98960; 99285-25; A9270; A9270-GY; C1751; C9113; J0696; J1170; J1650; J1940; J2060; J2405; J2543; J2550; J2930; J3010; J3370; J3411; J3475; J3480; J7030; J7040; J7042; J7050; J7120; Q9967; U0002; U0003

== ENCOUNTER 2020-08-28 17:02 | Observation (INO) | payer MEDICARE, OTHER ==
[~2020-08-28] VITALS: Ht 167.6 cm; Wt 55.4 kg
[~2020-08-28 17:02] MED LIST changes: +ALBU90OI6 INH; +AMOCLA875 PO; +Amitriptyline150 MG PO; +BUSP10 PO; +Bisoprolol Fumar5 MG PO; +METO100ER PO; +ONDA4 PO; +OXAYDO5 MG PO; +PANTOPRAZOLE SO40 M2 PO; +PRAMIPEXOLE0.125 M1 PO; +PROZAC40 MG PO; +Pravastatin Sod80 MG PO; +Vitamin D2000 UNIT PO
[2020-08-28 18:48] LABS: Free Thyroxine 0.93 ng/dL (0.70-1.60); Troponin I <0.015 ng/mL (0.000-0.040)
[2020-08-28 18:56] LABS: Alanine Aminotransfer (ALT/SGP 20 U/L (12-78); Albumin, Blood 3.5 g/dL (3.4-5.0); Albumin/Globulin Ratio 0.9 (0.8-1.8); Alk Phos 110 U/L (50-136); Anion Gap 7 mmol/L (6-16); Aspartate Aminotrans (AST/SGOT 28 U/L (12-37); Bilirubin, Total 0.4 mg/dL (0.1-1.0); Blood Urea Nitrogen 20 mg/dL (8-24); Bun/Creatinine Ratio 27.6 (12.0-20.0); CO2, Blood 21 mmol/L (21-32); Calcium, Blood 8.9 mg/dL (8.5-10.1); Chloride, Blood 110 mmol/L (98-108); Creatinine, Blood 0.73 mg/dL (0.40-1.00); Globulin, Blood 3.7 g/dL (2.2-4.0); Glomerular Filtration Rate >60 (60-); Glucose, Blood 105 mg/dL (70-99); Potassium, Blood 4.8 mmol/L (3.5-5.5); Salicylate 1.8 mg/dL (2.8-20.0); Sodium, Blood 138 mmol/L (136-145); Total Protein, Blood 7.2 g/dL (6.4-8.2); Triiodothyronine, Free 3.35 pg/mL (2.18-3.98)
[2020-08-28 18:57] LABS: BASOPHILS ABSOLUTE AUTO 0.06 K/mm3 (0.00-0.23); BASOPHILS PERCENT AUTO 0 % (0-2); EOSINOPHILS PERCENT AUTO 0 % (0-6); Hematocrit 36.6 % (33.0-51.0); Hemoglobin 11.6 g/dL (11.5-16.0); IMMATURE GRAN ABSOLUTE AUTO 0.06 K/mm3 (0.00-0.10); IMMATURE GRAN PERCENT AUTO 0 % (0-1); LYMPHOCYTES PERCENT AUTO 8 % (21-46); MONOCYTES ABSOLUTE AUTO 0.68 K/mm3 (0.16-1.47); MONOCYTES PERCENT AUTO 4 % (4-13); Mean Corpuscular HGB 29.7 pg (26.0-34.0); Mean Corpuscular HGB Conc 31.7 g/dL (31.5-36.5); Mean Corpuscular Volume 94 fL (80-100); NEUTROPHILS PERCENT AUTO 87 % (41-73); Platelet Count 583 K/mm3 (150-400); RDW Coefficient Variation 12.7 % (11.7-14.2); RDW Standard Deviation 43.7 fL (35.1-46.3)
[2020-08-28 18:57] LABS: Acetaminophen, Random <2.0 ug/mL (10.0-30.0)
[2020-08-28 19:34] LABS: Source, Urine Catheter
[2020-08-28 19:38] LABS: Appearance, Urine Cloudy (Clear); Bilirubin, Urine Neg (Neg); Blood, Urine 2+ (Neg); Color, Urine Yellow (P-Yellow); Glucose Qualitative, Urine Neg (Neg); Ketones, Urine Neg (Neg); Leukocyte Esterase, Urine 3+ (Neg); Nitrite, Urine Pos (Neg); Protein, Urine 2+ (Neg); Specific Gravity, Urine 1.015 (1.003-1.022); Urobilinogen, Urine NORM (Normal)
[2020-08-28 19:44] LABS: Bacteria Many /hpf; Red Blood Cells, Urine 0-2 /hpf (0-2); Squamous Epithelial Cells Few /hpf (Few); White Blood Cells, Urine TNTC /hpf (0-5)
[2020-08-28 19:50] LABS: U Amphetamine Screen Not Detected; U Barbituate Screen Not Detected; U Benzodiazapine Screen DETECTED; U Buprenorphine Screen Not Detected; U Cannabinoids Screen DETECTED; U Cocaine Screen Not Detected; U Methadone Screen Not Detected; U Methamphetamine Screen Not Detected; U Opiates Screen Not Detected; U Oxycodone Screen Not Detected; U Phencyclidine Screen Not Detected; U Propoxyphene Screen Not Detected
[2020-08-28] MEDS ORDERED: CEFU500T30 PO (22:04)
[2020-08-28] MEDS ORDERED: ONDA4ODT MM (22:04)
--- NOTE | 2020-08-28 23:45 | NUR ---
SUSAN IS BEING ADMITTED TO MEDICAL FLOOR DUE TO UTI, METABOLIC ENCEPHALOPATHY, PSUDOCYST ON LIVER AND PANCREASE. SHE WAS TALKING ON THE PHONE WITH HER DAD WHEN SHE BECAME UNRESPONSIVE TO HIM. HE CALLED SOMEONE TO GO CHECK ON HER, SHE WAS FOUND TO BE CABATIVE, AND CONFUSED. EMS WAS CALLED, SHE WAS BROUGHT TO THE ER, STILL CABATIVE AND CONFUSED. HAD TO BE RESTRAINED. AFTER ANTIBOTICS WAS GIVEN SHE STARTED TO CLEAR UP. ARRIVED TO FLOOR VIA WC, TRANSFERRED TO BED WITH 1 ASSIST. AOX3 WITH MILD CONFUSION JUST ABOUT WHAT HAPPENED AND HOW SHE GOT HERE. GAVE HER A BACKGROUND AND SHE WAS SHOCKED THAT SHE DID THOSE THINGS. STATES SHE HAD NO GLUE ANYTHING WAS GOING ON WITH HER. LUNG SOUNDS ARE CLEAR, HR REGULAR. INCONTIENT/CONTIENT OF URINE, ATTENDS ON. SKIN PWD, DOES HAVE SCAR ON ABDOMIN BUT HEALED. HAS HISTORY OF SPINAL ABCESS THAT CAUSED HER LLE TO NOT FUNCTION RIGHT, SHE IS NOT ABLE TO BEND IT. REPORTS PAIN AT 8/10 STATES SHE HURTS ALL OVER. NOT TIME FOR HER MEDS. HUNG IV FLUIDS, CIPRO, GAVE LOVENOX INJECTION. HELD FLU SHOT SHE DOES NOT REMEMBER IF SHE HAD IT. CALL LIGHT GIVEN, SHE GOT ON THE PHONE AND CALLED HER DAD.
--- NOTE | 2020-08-29 01:00 | NUR ---
CALLED DR. KEYS FOR SLEEPING PILL. WHEN DISCUSSING THE CASE WITH DR. KEYS HE REPORTED THAT THE PATIENT SINCE SHE IS NO LONGER CONFUSED CAN BE DISCHARGED HOME. HE STILL ORDERED THE SLEEPING MED, BUT INFORMED ME THAT HE WILL TALK TO ER DOCTOR ABOUT WRITING SOME DISCHARGE ORDERS. SPOKE WITH THE PATIENT REGARDING DISCHARGE SHE AGREED SHE DID NOT UNDERSTAND WHY SHE WAS BEING ADMITTED AND WANTED TO GO HOME. WILL CALL CAREGIVER TO SEE IF SHE CAN GET A RIDE HOME.
--- NOTE | 2020-08-29 06:06 | NUR ---
SHIFT SUMMARY: SUSAN WAS ADMITTED TO THE FLOOR FOR AMS WHEN SHE GOT TO THE FLOOR SHE WAS AOX3 BUT CONFUSED ABOUT HOW SHE GOT HER OR WHY SHE WAS ADMITTED. SHE HAS BEEN ABLE TO CALL HER DAD AND ANSWER ALL QUESTIONS. FINISHED HER ADMIT AND WHEN I CALLED THE DOCTOR TO DISCUSS SOME SLEEPING MEDICATION, HE SAID SHE CAN GO HOME. HE REPORTED THAT HE WILL HAVE ER WRITE ORDERS FOR DISCHARGE. PATIENT ALSO WANTED TO GO HOME. WE WERE UNABLE TO GET CAREGIVER TO ANSWER THE PHONE OR FIND SOMEONE THAT CAN PICK HER UP. IV FLUIDS WERE DISCONTINUED. LEFT MESSAGES FOR CAREGIVER TO CALL HOSPITAL. AWAITING FOR VERFICATION ON RIDE AND SOMEONE TO BE AT HOME FOR HER SHE IS PARAPLEGIC. ORDERS FOR DISCHARGED ARE RECEIVED. CALL LIGHT IS IN REACH.
--- NOTE | 2020-08-29 17:28 | NUR ---
PATIENT HAS BEEN PLEASANT AND COOPERATIVE WITH STAFF. AFTER A BUNCH OF CONFUSION TO WHETHER THE PATIENT WAS DISCHARGING AND WHO THE PROVIDER WAS ([facility]. [facility]OS[facility]) DR BOWMAN CAME TO ASSESS PATIENT AND DECIDED TO ADMIT THE PATIENT FOR ELEVATED LIPASE AND UTI WITH TREATMENT OF IV ABX. VITALS STABLE WITH SOME TACHYCARDIA NOTED. PATIENT STARTED ON IV ABX WITHOUT S/SX OF ADVERSE REACTIONS NOTED OR REPORTED. PAIN MEDICATION GIVEN FOR GENERALIZED PAIN ALL OVER. PATIENT IS UP INDEPENDENTLY WITH WALKER IN ROOM. WILL CONTINUE TO MONITOR AND PROVIDE CARE NEEDED.
--- NOTE | 2020-08-29 22:11 | NUR ---
ASSUMED CARE. SUSAN IS AOX3, BUT STILL IS HAVING MEMORY ISSUES, SHE DID NOT REMEMBER ME FROM LAST NIGHT, AND CONTINUES TO ASK ABOUT THE OCCURANCE TRYING TO PEICE TOGETHER EVENT. SHE IS PLEASANT AND COOPERATIVE, KNOWS ALL ORIENTATION QUESTIONS. SHE RECOGNIZES THAT SHE IS HAVING MEMORY ISSUES AND STATES IT IS FROM HER UTI. DENIES ANY SYMPTOMS OF UTI AT THIS TIME. NO PAIN NOTED. LUNG SOUNDS CLEAR, HR REGULAR. NO OTHER NEEDS TO NOTE. CALL LIGHT IN REACH.
[2020-08-30 05:25] LABS: BASOPHILS ABSOLUTE AUTO 0.08 K/mm3 (0.00-0.23); BASOPHILS PERCENT AUTO 1 % (0-2); EOSINOPHILS ABSOLUTE AUTO 0.05 K/mm3 (0.00-0.68); EOSINOPHILS PERCENT AUTO 1 % (0-6); Hematocrit 34.9 % (33.0-51.0); Hemoglobin 10.8 g/dL (11.5-16.0); IMMATURE GRAN ABSOLUTE AUTO 0.02 K/mm3 (0.00-0.10); IMMATURE GRAN PERCENT AUTO 0 % (0-1); LYMPHOCYTES ABSOLUTE AUTO 2.77 K/mm3 (0.84-5.20); LYMPHOCYTES PERCENT AUTO 41 % (21-46); MONOCYTES ABSOLUTE AUTO 0.68 K/mm3 (0.16-1.47); MONOCYTES PERCENT AUTO 10 % (4-13); Mean Corpuscular HGB 29.1 pg (26.0-34.0); Mean Corpuscular HGB Conc 30.9 g/dL (31.5-36.5); Mean Corpuscular Volume 94 fL (80-100); Mean Platelet Volume 9.1 fL (9.1-12.4); NEUTROPHILS ABSOLUTE AUTO 3.21 K/mm3 (1.96-9.15); NEUTROPHILS PERCENT AUTO 47 % (41-73); Platelet Count 495 K/mm3 (150-400); RDW Coefficient Variation 12.8 % (11.7-14.2); RDW Standard Deviation 43.8 fL (35.1-46.3); Red Blood Cell Count 3.71 M/mm3 (3.80-5.20); White Blood Cell Count 6.81 K/mm3 (4.00-11.30)
[2020-08-30 06:00] LABS: Alanine Aminotransfer (ALT/SGP 19 U/L (12-78); Albumin, Blood 3.3 g/dL (3.4-5.0); Alk Phos 97 U/L (50-136); Anion Gap 6 mmol/L (6-16); Aspartate Aminotrans (AST/SGOT 19 U/L (12-37); Bilirubin, Total 0.3 mg/dL (0.1-1.0); Blood Urea Nitrogen 9 mg/dL (8-24); CO2, Blood 23 mmol/L (21-32); Chloride, Blood 114 mmol/L (98-108); Creatinine, Blood 0.69 mg/dL (0.40-1.00); Globulin, Blood 3.4 g/dL (2.2-4.0); Glomerular Filtration Rate >60 (60-); Glucose, Blood 98 mg/dL (70-99); Potassium, Blood 3.9 mmol/L (3.5-5.5); Sodium, Blood 143 mmol/L (136-145); Total Protein, Blood 6.7 g/dL (6.4-8.2)
--- NOTE | 2020-08-30 06:45 | NUR ---
SHIFT SUMMARY; SUSAN HAD AN UNEVENTFUL NIGHT. SHE HAS BEEN ABLE TO GET UP AND AMBULATE USING A WALKER. PAIN MEDICATION GIVEN X1. SHE SLEPT WELL T/O THE NIGHT. IV FLUIDS WERE STARTED PER ORDERS. VS WNL, AFEBRILE. GOOD APPETITE. NO ACUTE CHANGES TO REPORT THIS SHIFT.
[2020-08-30] MEDS ORDERED: CIPR500 PO (14:17)
[2020-08-30] MEDS ORDERED: OMEP20ER PO (14:20)
[2020-08-30] MEDS ORDERED: OXYC5 PO (14:21)
--- NOTE | 2020-08-30 15:03 | NUR ---
PATIENT DISCHARGED TO HOME WITH [facility] [employer]. IV ACCIDENTALLY PULLED OUT BY PATIENT EARLIER TODAY, SITE WNL. NEURO EXAM INTACT. NO BELONGINGS LEFT BEHIND IN ROOM. TAKEN DOWNSTAIRS BY W/C AT 1455.
== END 2020-08-30 14:53 | disposition home or self-care (01) ==
LOC: ER 17:02 → MEDS 17:03
PROVIDERS: Emergency Medicine; Internal Medicine; ADMIT Internal Medicine
DX: G92 Toxic encephalopathy (principal); N39.0 Urinary tract infection, site not specified; B96.1 Klebsiella pneumoniae [K. pneumoniae] as the cause of diseases classified elsewhere; R32 Unspecified urinary incontinence; I10 Essential (primary) hypertension; G82.20 Paraplegia, unspecified; E78.5 Hyperlipidemia, unspecified; K86.1 Other chronic pancreatitis; K86.3 Pseudocyst of pancreas; D63.8 Anemia in other chronic diseases classified elsewhere; Z88.5 Allergy status to narcotic agent; Z88.6 Allergy status to analgesic agent; Z88.8 Allergy status to other drugs, medicaments and biological substances; Z79.899 Other long term (current) drug therapy; Z87.891 Personal history of nicotine dependence; Z90.710 Acquired absence of both cervix and uterus; Z51.5 Encounter for palliative care; Z23 Encounter for immunization
CPT/HCPCS: 36415; 70450; 71045; 74176; 80053; 81001; 82140; 83605; 83690; 83735; 84439; 84443; 84481; 84484; 85025; 87040; 87077; 87086; 87186; 93005; 93010; 96365; 96366; 96367; 96372; 96372-59; 96375; 99285-25; A9270; A9270-GY; G0378; G0480; J0696; J0744; J1200; J1630; J1650; J2060; J3010; J7030; J7050; J7120; P9612